=== PATIENT | female | born 1980 | race Caucasian/White ===

== ENCOUNTER 2018-03-17 16:15 | Emergency (ER) | payer OTHER, MEDICAID, SELFPAY | END 2018-03-17 18:25 | disposition home or self-care (01) | PROVIDERS: Emergency Provider Emergency Medicine; Family Provider Physician Assistant; PCP Physician Assistant; Visit Provider Emergency Medicine | DX: N83.201 Unspecified ovarian cyst, right side (principal) | CPT/HCPCS: 76830; 76856; 76857; 81003; 81015; 81025; 96372; 99283; J1885 ==

== ENCOUNTER → 2018-06-09 09:55 | Outpatient (CLI) | payer OTHER, MEDICAID, SELFPAY ==
[2018-06-09 10:26] LABS: Alanine Aminotransferase 39 IU/L (9-52); Albumin 4.1 g/dL (3.5-5.0); Albumin Globulin Ratio 1.7 (1.0-2.8); Alkaline Phosphatase 57 U/L (38-126); Aspartate Aminotransferase 26 IU/L (14-36); Bilirubin Total 0.4 mg/dL (0.2-1.3); Blood Urea Nitrogen 18 mg/dL (7-17); Carbon Dioxide 28 mmol/L (22-32); Chloride 107 mmol/L (98-107); Cholesterol 169 mg/dL (140-199); Estimated Glomerular Filt Rate > 60.0 mL/min (>60); Globulin 2.4 g/dL (1.7-4.1); Glucose 98 mg/dL (70-100); HDL Cholesterol 55 mg/dL (40-60); HEMOLYSIS < 15 (0-50); LDL Cholesterol Calculated 101 mg/dL (<100); Sodium 140 mmol/L (137-145); Total Protein 6.5 g/dL (6.3-8.2); Triglycerides 65 mg/dL (35-150)
[2018-06-09 10:58] LABS: HEMOLYSIS < 15 (0-50); Iron 82 ug/dL (37-170)
[2018-06-09 11:00] LABS: Ferritin 14.5 ng/mL (6.27-137)
[2018-06-09 11:11] LABS: Percent Iron Saturation 26 % (15-50); Total Iron Binding Capacity 318 ug/dL (265-497); Transferrin 254 mg/dL (206-381)
[2018-06-09 11:30] LABS: Thyroid Stimulating Hormone 2.26 uIU/mL (0.47-4.68)
--- NOTE | 2018-07-15 10:42 | DIET.PN ---
Assess: 38 yof referred for obesity and pre-bariatric nutrition counseling. Met for patients 12th of 12 appointments. The patient and I have been meeting since late October. She has had a few set backs related to GI complications and had to undergo surgery which led to a break in our appointments. However, she was able to maintain her weight loss since beginning our sessions together. Anabel has many things going in her life including work, trying to go back to school, some health complications which have hopefully been resolved and she is a mother. Through a hectic lifestyle she has remained motivated to lose weight and make healthful lifestyle choices. Anabel has also been involved in several online groups which discuss the pros/cons of bariatric surgery which has also been a means for support as she has embarked on this journey to better health. Anabel has indicated to me she was unsure of the surgery, specifically if she knew she could lose the weight on her own. As we continued to meet, it became more clear to her this is something she feels she needed to do. She has an understanding of what is expected of her through diet and exercise and has shown she can adjust to these recommendations even in the more stressful moments. She has provided 24 hr recalls when I have asked. While this is a tedious request, she sees the benefit in keeping track of her intake for the best outcome and has been compliant. Anabel has met her goal weight. Anthros: Ht: 64 Wt: 282 Goal wt: 282 BMI: 43.25 Nutrition DX: Obesity r/t excessive caloric intake and inadequate PA eb previous diet hx, BMI > normative standards. Intervention: 1. We discussed changes in lifestyle (going back to school, time management) as it related to eating habits. 2. Discussed challenges to staying active and ways to include these daily with her new schedule. Monitor: This was Anabel's last visit. All documents will be sent to provider. Signed: Ana Luisa Stanley MS, RD/LD, CDE
== END ==
PROVIDERS: PCP Physician Assistant; Visit Provider Physician Assistant
DX: R53.83 Other fatigue (principal); E66.01 Morbid (severe) obesity due to excess calories; Z13.220 Encounter for screening for lipoid disorders; Z13.6 Encounter for screening for cardiovascular disorders
CPT/HCPCS: 80053; 80061; 82728; 83540; 83550; 84443

== ENCOUNTER → 2018-06-16 07:58 | Outpatient (CLI) | payer OTHER, MEDICAID, SELFPAY ==
[2018-06-16 08:42] VITALS: BMI 48.9
== END ==
PROVIDERS: PCP Physician Assistant; Visit Provider Physician Assistant
DX: Z71.3 Dietary counseling and surveillance (principal); E66.01 Morbid (severe) obesity due to excess calories; Z68.42 Body mass index [BMI] 45.0-49.9, adult
CPT/HCPCS: 97803

== ENCOUNTER → 2018-06-24 09:33 | Outpatient (CLI) | payer OTHER, MEDICAID, SELFPAY ==
[2018-06-24 10:38] VITALS: BMI 48.0
== END ==
PROVIDERS: PCP Physician Assistant; Visit Provider Physician Assistant
DX: Z71.3 Dietary counseling and surveillance (principal); E66.01 Morbid (severe) obesity due to excess calories; Z68.42 Body mass index [BMI] 45.0-49.9, adult
CPT/HCPCS: 97803

== ENCOUNTER → 2018-06-28 09:20 | Outpatient (CLI) | payer OTHER, MEDICAID, SELFPAY ==
[2018-06-28 09:56] VITALS: BMI 48.5
== END ==
PROVIDERS: PCP Physician Assistant; Visit Provider Physician Assistant
DX: E66.01 Morbid (severe) obesity due to excess calories (principal); Z68.42 Body mass index [BMI] 45.0-49.9, adult
CPT/HCPCS: 97803

== ENCOUNTER → 2018-07-15 09:47 | Outpatient (CLI) | payer OTHER, MEDICAID, SELFPAY | PROVIDERS: PCP Physician Assistant; Visit Provider Physician Assistant | DX: Z71.3 Dietary counseling and surveillance (principal) | CPT/HCPCS: 97803 ==

== ENCOUNTER → 2018-08-18 14:40 | Outpatient (CLI) | payer OTHER, MEDICAID, SELFPAY | PROVIDERS: PCP Physician Assistant; Visit Provider Obstetrics & Gynecology | DX: N90.89 Other specified noninflammatory disorders of vulva and perineum (principal) | CPT/HCPCS: 36415; 86695; 86696; 87255 ==

== ENCOUNTER 2019-01-30 08:32 | Day surgery (SDC) | payer OTHER, MEDICAID, SELFPAY ==
[2019-01-27 10:53] VITALS: BMI 46.3
[2019-01-30] VITALS (9 sets, daily range): BP systolic 107–155; BP diastolic 68–99; PULSE 66–92; RESP 9–72; TEMP 36–36.7; O2SAT 11–99; BMI 46.6
[2019-01-30] MEDS: LACTATED RINGERS 1,000 ML 100 ML IV (09:15)
--- NOTE | 2019-01-30 10:14 | PM.PREOP ---
Pre-operative Note Interval Note History & Physical reviewed/Exam performed by Physician: Yes Changes to H&P: No
[2019-01-30] MEDS: CEFAZOLIN VIAL 3 GM in SODIUM CHLORIDE 0.9% 100 ML 200 ML IV (10:25)
[2019-01-30] MEDS: BUPIVACAINE 0.5% W/ EPI (PF) VIAL 10 ML INJ (11:05)
[2019-01-30] MEDS: ACETAMINOPHEN IV 1,000 MG/100 ML VIAL 400 MG IV (11:15)
[2019-01-30] MEDS: HYDROMORPHONE 2 MG INJ 0.25 MG IV (12:05)
[2019-01-30] MEDS: OXYCODONE/ACETAMINOPHEN 5/325 TABLET 1 TAB PO (12:13)
--- NOTE | 2019-01-30 12:13 | SUR.PHASEI ---
pain improved after IV rx. HOB elevated. tolerating fluids and applesauce well.
--- NOTE | 2019-01-30 12:22 | SUR.PHASEI ---
To opd, family to bedside. Report given. drowsy, stable, c/o sore throat, ice chips given.
--- NOTE | 2019-01-30 12:55 | SUR.PHASEII ---
PT TOLERATING PO FLUIDS, VISITING WITH FRIENDS AT BEDSIDE.
--- NOTE | 2019-02-04 11:08 | P.OP_ITS ---
Operative Date/Time/Diagnoses Date of procedure: 01/30/19 Time of procedure: 12:00 Pre-op diagnosis: Menorrhagia Dysmenorrhea Post-op diagnosis: same Procedure: Procedures Operation Date: 01/30/19 09:45 Actual Procedures Side Surgeon p diagnostic laparoscopy Luana Chavez MD Indications: Menorrhagia Dysmenorrhea Surgeon: Luana Chavez Greenhouse Superintendent: Taj Aguero Anesthesia Type: General Operative Notes Findings: Could not visualize the pelvis due to patient's body habitus Closure Type: primary Specimen(s): none Estimated blood loss (mL): 3 Blood products transfused: none Procedure in detail: The patient was taken to the operating room where she was placed in the dorsal supine position. After adequate general endotracheal anesthesia was achieved, she was placed in the dorsal lithotomy position, and prepped and draped in the usual sterile fashion. A time-out was performed. A bivalve speculum was placed into the vagina and the anterior lip of the cervix grasped with a single-tooth tenaculum. The cervical os was sequentially dilated until the Zumi uterine manipulator could pass easily into the endometrial cavity. Single-tooth tenaculum was removed from the anterior lip of the cervix. The bivalve speculum was removed from the vagina. Attention was then turned to the abdomen where 6 cc of 0.5% Marcaine with epinephrine were injected in the umbilical fold. A 5 mm incision was made. Using the long Veress needle an at tempt was made to insufflate the abdomen. The visit view trocar was then used to try to get into the abdominal cavity. After multiple attempts with both the varies and the trocar, intraperitoneal entry was not obtained. The patient's body habitus was beyond the capabilities of the instrumentation. A decision was made to stop the procedure and refer the patient to a center with bariatric capabilities. The infraumbilical incision was closed with 4 0 undyed Vicryl in a subcuticular fashion. The Zumi uterine manipulator was removed from the uterus. Sponge, lap, and instrument counts were correct x2. The patient tolerated the procedure well, and was taken to PACU in stable condition. Complications: none Post-operative Condition: stable Disposition: PACU Plan for aftercare: Home after recovery
== END 2019-01-30 13:25 | disposition home or self-care (01) ==
LOC: OR 08:35 → AC 08:36
PROVIDERS: PCP Physician Assistant; Visit Provider Obstetrics & Gynecology
PROC: 0UT94ZL Resection of Uterus, Supracervical, Percutaneous Endoscopic Approach (ICD-10-PCS; CPT 49320; principal; 2019-01-30 09:45)
DX: N94.6 Dysmenorrhea, unspecified (principal); N92.0 Excessive and frequent menstruation with regular cycle; Z53.09 Procedure and treatment not carried out because of other contraindication; Z87.891 Personal history of nicotine dependence
CPT/HCPCS: 49320; J0131; J0690; J1100; J1170; J2250; J2405; J2704; J3010

== ENCOUNTER 2019-05-25 16:50 | Emergency (ER) | payer OTHER, MEDICAID, SELFPAY ==
[2019-05-25 16:55] VITALS: BP 155/79; PULSE 113; RESP 20; O2SAT 99
--- NOTE | 2019-05-25 17:26 | ED.CHESTPAIN ---
HPI - Chest Pain <Evelyn Mitchell PA-C - Last Filed: 05/25/19 21:07> General Chief Complaint: Chest Pain Stated Complaint: SOMETHING GOING ON WITH HER HEART Time Seen by Provider: 05/25/19 17:26 Source: patient Mode of arrival: ambulatory Limitations: no limitations History of Present Illness HPI narrative: This 39-year-old female complains of palpitations and chest discomfort all day today. She states that she had a night sweat last night, and woke up with this today. She states that her heart rate is regular but seems to fluctuate up and down and with that she can feel lightheaded/presyncopal sensation though no episodes of passing out. She states that she does not have any wheeze or dyspnea. She has some chronic lower extremity sciatica pain and anterior leg pain, but denies any new calf pain or swelling today. She states that she has a pinching pain in her chest on the left side and in her back as well as intermittently down her left arm. She states that she can feel this in her fingers occasionally but cannot say which. She states that prior to today she has had sore neck and pains throughout the left side of her body for which she has been doing workup with her PCP including MRI. She denies any new abdominal pain or vomiting. States she has had a little bit of nausea, but drinking normal fluids and eating normally. She does tend to drink a lot of coffee, denies any new medications or substances. Denies any recent illness, cough, upper respiratory symptoms, rash. She does have a history though of panic attacks, states she usually does not take medication for these. She denies any possibility of just finished menses. She states that she had a similar, worse episode a little over year ago where she actually did pass out and was seen at another local hospital. She states that full workup was done including chest PE study which was negative. She has had some other episodes where she feels presyncopal occasionally. Related Data Home Medications Medication Instructions Recorded Confirmed [id number] 1 - 2 tab PO Q6H PRN 05/25/19 05/25/19 verapamil 120 mg PO [id number] 05/25/19 05/25/19 Allergies Allergy/AdvReac Type Severity Reaction Status Date / Time bupropion [From WELLBUTRIN] AdvReac Severe mental Verified 03/04/19 09:16 breakdown while taking it. I prefer not to take it. clindamycin [CLINDAMYCIN] AdvReac Mild gave me c Verified 01/30/19 09:16 diff Review of Systems <Evelyn Mitchell PA-C - Last Filed: 05/25/19 21:07> Review of Systems ROS Unobtainable: All systems reviewed & are unremarkable except as noted in HPI and below PFSH <Evelyn Mitchell PA-C - Last Filed: 05/25/19 21:07> Medical History Anxiety (Chronic 2012) Depression (Chronic 2012) Hypothyroid (Chronic) Impaired vision (Chronic) Migraines (Chronic) CTS (carpal tunnel syndrome) (Resolved 2012) Social History marital status: unmarried,single number of children: 1 household members: family lives independently: Yes pets and animals: No education level: vocational occupational status: employed ([employer]) leisure activities: art and reading other: writing, painting, drawing seatbelt use: always water heater temp set < 120 deg: Yes working smoke detector in home: Yes fire extinguisher in home: Yes carbon monox detector in home: Yes firearms in home: No Smoking Status: Former smoker Tobacco: How many years used: 20 second hand exposure: No alcohol intake: never substance use type: former substance user (meth and pills, and any kind of pill) and other (CBC for pain) during the past year weight has: other well-balanced diet: daily or most days daily servings fruits/ve-4 caffeine: Yes (rare/occasional soda/pop) eating out: 1-3 times/week Type(s) of exercise: walking and other frequency: 1-2 times per week duration: 30-45 minutes/day additional social history: vision deficit-states she has floaters Exam <Evelyn Mitchell PA-C - Last Filed: 05/25/19 21:07> Narrative Exam Narrative: GENERAL APPEARANCE: Patient sitting comfortably, in no distress. HEENT: PERRL, EOMI, conjunctivae pink, normal oropharynx NECK: Supple, no masses LUNGS: Clear to auscultation bilaterally. HEART: Rate and rhythm regular, normal S1 and S2, no S3 or S4. ABDOMEN: Soft, nontender, nondistended, bowel sounds present x 4 quadrants, no masses palpable EXTREMITIES: No edema, no cyanosis, no calf tenderness DERMATOLOGIC: No jaundice or exanthem NEUROLOGIC: Alert and oriented with normal speech and coordination Initial Vital Signs Initial Vital Signs: Vital Signs Pulse Rate 113 H 05/25/19 16:55 Respiratory Rate 20 05/25/19 16:55 Blood Pressure 155/79 H 05/25/19 16:55 Pulse Oximetry 99 05/25/19 16:55 <Carmen Iglesias MD - Last Filed: 05/26/19 02:54> Initial Vital Signs Initial Vital Signs: Vital Signs Pulse Rate 113 H 05/25/19 16:55 Respiratory Rate 20 05/25/19 16:55 Blood Pressure 155/79 H 05/25/19 16:55 Pulse Oximetry 99 05/25/19 16:55 Course <Evelyn Mitchell PA-C - Last Filed: 05/25/19 21:07> Additional Information: On the monitor after initial evaluation patient's heart rate has been regular, pulse range 80s to 90s, 81 when talking with her prior to discharge. In discussion with patient she had an episode about a year ago where she states that she passed out, had similar symptoms and was taken to ED. She had chest CT PE study which was negative. At the time she states further cardiac testing was discussed but not done and she has since changed PCP. She states she has had several more episodes of near-syncope where she will start to feel faint, has not passed out again. We talked about her barely elevated D-dimer, given her history year old is likely low as far finding a new PE she prefers not to get further testing for that this evening as she is feeling better. Discussed importance of return if any acutely worsening symptoms again and she is agreeable with this plan. Discussed importance of follow-up and further cardiac workup. We discussed also could be related to panic attacks as she has a history but should have further testing to rule out other issues. She is still undergoing workup for chronic left-sided pain as well. Findings and plan reviewed with attending physician Dr. Iglesias Orders Ordered: Discontinued Medications Sodium Chloride (Normal Saline 0.9%) 1,000 mls @ 1,000 mls/hr IV BOLUS ONE Stop: 05/25/19 18:49 Last Infusion: 05/25/19 19:31 Dose: 1,000 mls/hr Admin: 05/25/19 18:30 Dose: 1,000 mls/hr Vital Signs - 8 hr 05/25/19 16:55 05/25/19 18:36 Pulse Rate 113 H 98 H Respiratory Rate 20 22 Blood Pressure 155/79 H Blood Pressure [Left Arm] 150/81 H Pulse Oximetry 99 97 <Carmen Iglesias MD - Last Filed: 05/26/19 02:54> Orders Ordered: Discontinued Medications Sodium Chloride (Normal Saline 0.9%) 1,000 mls @ 1,000 mls/hr IV BOLUS ONE Stop: 05/25/19 18:49 Last Infusion: 05/25/19 19:31 Dose: 1,000 mls/hr Admin: 05/25/19 18:30 Dose: 1,000 mls/hr Vital Signs - 8 hr 05/25/19 16:55 05/25/19 18:36 Pulse Rate 113 H 98 H Respiratory Rate 20 22 Blood Pressure 155/79 H Blood Pressure [Left Arm] 150/81 H Pulse Oximetry 99 97 MDM - Chest Pain <Evelyn Mitchell PA-C - Last Filed: 05/25/19 21:07> Lab Data Attestation: I reviewed the patient's lab results. Result diagrams: 05/25/19 17:45 05/25/19 17:45 Lab Results 05/25/19 05/25/19 05/25/19 Range/Units 17:45 17:45 17:45 WBC 9.0 (4.5-11.0) X10^3/uL RBC 4.83 (4.0-5.2) X10^6/uL Hgb 13.5 (12.0-16.0) g/dL Hct 40.9 (36-46) % MCV 84.7 (80-100) fL MCH 28.0 (26-34) PG MCHC 33.0 (30-36) % RDW 14.2 (11.6-14.8) % Plt Count 289 (150-400) X10^3/uL Neut % (Auto) 68.9 (50-75) % Lymph % (Auto) 20.2 L (25-40) % [place] % (Auto) 8.7 (3-14) % Eos % (Auto) 1.5 L (2-4) % Baso % (Auto) 0.7 (0-2) % Neut # (Auto) 6200 (3723-5029) /uL Lymph # (Auto) 1800 (0234-5244) /uL [place] # (Auto) 800 (0-900) /uL Eos # (Auto) 100 (0-450) /uL Baso # (Auto) 100 (0-100) /uL D-Dimer 254 H (<230) ng/mL Sodium 140 (137-145) mmol/L Potassium 3.5 (3.4-5.1) mmol/L Chloride 103 (98-107) mmol/L Carbon Dioxide 27 (22-32) mmol/L BUN 18 H (7-17) mg/dL Creatinine 0.70 (0.52-1.04) mg/dL Estimated GFR > 60.0 (>60) mL/min BUN/Creatinine Ratio 25.7 H (6-22) Glucose 114 H (70-100) mg/dL Calcium 9.4 (8.4-10.2) mg/dL Magnesium 1.9 (1.6-2.3) mg/dL Total Bilirubin 0.3 (0.2-1.3) mg/dL AST 28 (14-36) IU/L ALT 22 (9-52) IU/L Alkaline Phosphatase 52 (38-126) U/L Total Creatine Kinase 41 (30-135) U/L CK-MB (CK-2) TNP CK-MB (CK-2) Rel Index TNP Troponin I < 0.012 (0.01-0.034) ng/mL Total Protein 7.6 (6.3-8.2) g/dL Albumin 4.6 (3.5-5.0) g/dL Globulin 3.0 (1.7-4.1) g/dL Albumin/Globulin Ratio 1.5 (1.0-2.8) Urine Dip Bedside Urine Glucose Negative Bedside Urine Bilirubin - Negative Bedside Urine Ketone - Negative Urine Specific [place] 1.010 Bedside Urine Occult Blood +/- Bedside Urine pH 6.5 Bedside Urine Protein - Negative Bedside Urine Urobilinogen - Negative Bedside Urine Nitrite - Negative Bedside Urine Leukocytes - Negative Esterase Imaging Data Chest x-ray: Radiologist's impression: Chart Viewer Diagnostics DATE TYPE STATUS AUTHOR Hx 05/25/19 17:50 Leonila Jaime Rachel E 39, F0 1980 [facility] ER, ED.LOC - Main ED Chest Pain Search Chart No Data to Display mental breakdown while taking it. I prefer not to take it. gave me c diff ONSET Today 18:36 Anabel Sorto 39 F 1980 [place] [address] XRay Report Signed Patient: Anabel Sorto EMR#: [id number] : 1980Acct:[id number] Age/Sex: 39 / FDate of Service: 05/25/19 Loc: ED Accession Number: [id number] Procedure: XR chest 1V Ordering Provider: Evelyn Mitchell P.A-C PROCEDURE: XR CHEST 1V INDICATIONS: chest pain/palpitations TECHNIQUE: One view of the chest was acquired. COMPARISON: None. FINDINGS: Surgical changes and devices: clips in the right upper quadrant. Lungs and pleura: Lungs are clear. No pleural effusions or pneumothorax. Mediastinum: Mediastinal contours appear normal. Heart size is normal. Bones and chest wall: No suspicious bony lesions. Overlying soft tissues appear unremarkable. IMPRESSION: No acute cardiopulmonary disease. Dictated by: Parul Jaime M.D. on 05/25/2019 at 18:11 Approved by: Parul Jaime M.D. on 05/25/2019 at 18:15 ECG Data Attestation: I personally reviewed and interpreted this ECG as follows: (Sinus tachycardia, rate 109, normal axis) <Carmen Iglesias MD - Last Filed: 05/26/19 02:54> Lab Data Lab Results 05/25/19 05/25/19 05/25/19 Range/Units 17:45 17:45 17:45 WBC 9.0 (4.5-11.0) X10^3/uL RBC 4.83 (4.0-5.2) X10^6/uL Hgb 13.5 (12.0-16.0) g/dL Hct 40.9 (36-46) % MCV 84.7 (80-100) fL MCH 28.0 (26-34) PG MCHC 33.0 (30-36) % RDW 14.2 (11.6-14.8) % Plt Count 289 (150-400) X10^3/uL Neut % (Auto) 68.9 (50-75) % Lymph % (Auto) 20.2 L (25-40) % [place] % (Auto) 8.7 (3-14) % Eos % (Auto) 1.5 L (2-4) % Baso % (Auto) 0.7 (0-2) % Neut # (Auto) 6200 (0846-9513) /uL Lymph # (Auto) 1800 (8748-5977) /uL [place] # (Auto) 800 (0-900) /uL Eos # (Auto) 100 (0-450) /uL Baso # (Auto) 100 (0-100) /uL D-Dimer 254 H (<230) ng/mL Sodium 140 (137-145) mmol/L Potassium 3.5 (3.4-5.1) mmol/L Chloride 103 (98-107) mmol/L Carbon Dioxide 27 (22-32) mmol/L BUN 18 H (7-17) mg/dL Creatinine 0.70 (0.52-1.04) mg/dL Estimated GFR > 60.0 (>60) mL/min BUN/Creatinine Ratio 25.7 H (6-22) Glucose 114 H (70-100) mg/dL Calcium 9.4 (8.4-10.2) mg/dL Magnesium 1.9 (1.6-2.3) mg/dL Total Bilirubin 0.3 (0.2-1.3) mg/dL AST 28 (14-36) IU/L ALT 22 (9-52) IU/L Alkaline Phosphatase 52 (38-126) U/L Total Creatine Kinase 41 (30-135) U/L CK-MB (CK-2) TNP CK-MB (CK-2) Rel Index TNP Troponin I < 0.012 (0.01-0.034) ng/mL Total Protein 7.6 (6.3-8.2) g/dL Albumin 4.6 (3.5-5.0) g/dL Globulin 3.0 (1.7-4.1) g/dL Albumin/Globulin Ratio 1.5 (1.0-2.8) Urine Dip Bedside Urine Glucose Negative Bedside Urine Bilirubin - Negative Bedside Urine Ketone - Negative Urine Specific [place] 1.010 Bedside Urine Occult Blood +/- Bedside Urine pH 6.5 Bedside Urine Protein - Negative Bedside Urine Urobilinogen - Negative Bedside Urine Nitrite - Negative Bedside Urine Leukocytes - Negative Esterase Discharge Plan Departure Patient Disposition: Home Clinical Impression: Heart palpitations Discharge Date/Time: 05/25/19 19:30 Interventions: ED Discharge Assessment Last Done: 05/25/19 19:31 Instructions: DI for Palpitations Activity Restrictions/Additional Instructions: Since you are feeling better, you can return home tonight and monitor. After talking, we have decided not to repeat your chest scan today since you had 1 last year when your symptoms were worse, however as we discussed, it is important that you follow-up with your PCP and talk about further workup for the episodes of lightheadedness that you have had along with this. The next steps may be to do an ultrasound of the heart to look at your valves (called an echocardiogram), and also a monitor can be put on for up to a month to catch any rhythm problems while your symptomatic. Please call your PCP 1st thing in the morning and schedule a follow-up, preferably for tomorrow, so you can get a referral going. In the meantime, please avoid caffeinated beverages other than a smaller amount of coffee (do not quit cold turkey since you have been drinking a lot), as those could exacerbate your symptoms. As we talked about, you should return to the ED/call 911 if you have recurrent symptoms, i.e. feeling like you will pass out/high heart rate or severe pain in the interim, or new symptoms such as shortness of breath or new swelling in your arms or legs. Prescriptions: No Action [id number]-[id number]-moys 50-325-40 mg tablet 1 - 2 tab PO Q6H PRN (Reason: Headache) RF: 0 verapamil 120 mg tablet extended release 120 mg PO [id number] RF: 0 Referrals: Dino Worthington MD [Non-Staff] -
--- NOTE | 2019-05-25 17:50 | DI.RAD.S_ITS ---
PROCEDURE: XR CHEST 1V INDICATIONS: chest pain/palpitations TECHNIQUE: One view of the chest was acquired. COMPARISON: None. FINDINGS: Surgical changes and devices: clips in the right upper quadrant. Lungs and pleura: Lungs are clear. No pleural effusions or pneumothorax. Mediastinum: Mediastinal contours appear normal. Heart size is normal. Bones and chest wall: No suspicious bony lesions. Overlying soft tissues appear unremarkable. IMPRESSION: No acute cardiopulmonary disease. Dictated by: Parul Jaime M.D. on 05/25/2019 at 18:11 Approved by: Parul Jaime M.D. on 05/25/2019 at 18:15
[2019-05-25 17:57] LABS: Add Manual Diff / Slide Review NO; Basophils Absolute Auto 100 /uL (0-100); Basophils Percent Auto 0.7 % (0-2); Eosinophils Absolute Auto 100 /uL (0-450); Eosinophils Percent Auto 1.5 % (2-4); Hematocrit 40.9 % (36-46); Hemoglobin 13.5 g/dL (12.0-16.0); Lymphocytes Absolute Auto 1800 /uL (1100-4500); Lymphocytes Percent Auto 20.2 % (25-40); Mean Corpuscular Volume 84.7 fL (80-100); Monocytes Absolute Auto 800 /uL (0-900); Monocytes Percent Auto 8.7 % (3-14); Neutrophils Absolute Auto 6200 /uL (1500-7000); Neutrophils Percent Auto 68.9 % (50-75); Platelet Count 289 X10^3/uL (150-400); Red Blood Cell Count 4.83 X10^6/uL (4.0-5.2); Red Cell Distribution Width 14.2 % (11.6-14.8)
--- NOTE | 2019-05-25 17:59 | ED_ITS ---
HPI - Chest Pain <Evelyn Mitchell PA-C - Last Filed: 05/25/19 21:07> General Chief Complaint: Chest Pain Stated Complaint: SOMETHING GOING ON WITH HER HEART Time Seen by Provider: 05/25/19 17:26 Source: patient Mode of arrival: ambulatory Limitations: no limitations History of Present Illness HPI narrative: This 39-year-old female complains of palpitations and chest discomfort all day today. She states that she had a night sweat last night, and woke up with this today. She states that her heart rate is regular but seems to fluctuate up and down and with that she can feel lightheaded/presyncopal sensation though no episodes of passing out. She states that she does not have any wheeze or dyspnea. She has some chronic lower extremity sciatica pain and anterior leg pain, but denies any new calf pain or swelling today. She states that she has a pinching pain in her chest on the left side and in her back as well as intermittently down her left arm. She states that she can feel this in her fingers occasionally but cannot say which. She states that prior to today she has had sore neck and pains throughout the left side of her body for which she has been doing workup with her PCP including MRI. She denies any new abdominal pain or vomiting. States she has had a little bit of nausea, but drinking normal fluids and eating normally. She does tend to drink a lot of coffee, denies any new medications or substances. Denies any recent illness, cough, upper respiratory symptoms, rash. She does have a history though of panic attacks, states she usually does not take medication for these. She denies any possibility of just finished menses. She states that she had a similar, worse episode a little over year ago where she actually did pass out and was seen at another local hospital. She states that full workup was done including chest PE study which was negative. She has had some other episodes where she feels presyncopal occasionally. Related Data Home Medications Medication Instructions Recorded Confirmed [id number]-ckcopoqlsfpnc-qrqh 1 - 2 tab PO Q6H PRN 05/25/19 05/25/19 verapamil 120 mg PO [id number] 05/25/19 05/25/19 Allergies Allergy/AdvReac Type Severity Reaction Status Date / Time bupropion [From WELLBUTRIN] AdvReac Severe mental Verified 03/04/19 09:16 breakdown while taking it. I prefer not to take it. clindamycin [CLINDAMYCIN] AdvReac Mild gave me c Verified 01/30/19 09:16 diff Review of Systems <Evelyn Mitchell PA-C - Last Filed: 05/25/19 21:07> Review of Systems ROS Unobtainable: All systems reviewed & are unremarkable except as noted in HPI and below PFSH <Evelyn Mitchell PA-C - Last Filed: 05/25/19 21:07> Medical History Anxiety (Chronic 2012) Depression (Chronic 2012) Hypothyroid (Chronic) Impaired vision (Chronic) Migraines (Chronic) CTS (carpal tunnel syndrome) (Resolved 2012) Social History marital status: unmarried,single number of children: 1 household members: family lives independently: Yes pets and animals: No education level: vocational occupational status: employed ([employer]) leisure activities: art and reading other: writing, painting, drawing seatbelt use: always water heater temp set < 120 deg: Yes working smoke detector in home: Yes fire extinguisher in home: Yes carbon monox detector in home: Yes firearms in home: No Smoking Status: Former smoker Tobacco: How many years used: 20 second hand exposure: No alcohol intake: never substance use type: former substance user (meth and pills, and any kind of pill) and other (CBC for pain) during the past year weight has: other well-balanced diet: daily or most days daily servings fruits/ve-4 caffeine: Yes (rare/occasional soda/pop) eating out: 1-3 times/week Type(s) of exercise: walking and other frequency: 1-2 times per week duration: 30-45 minutes/day additional social history: vision deficit-states she has floaters Exam <Evelyn Mitchell PA-C - Last Filed: 05/25/19 21:07> Narrative Exam Narrative: GENERAL APPEARANCE: Patient sitting comfortably, in no distress. HEENT: PERRL, EOMI, conjunctivae pink, normal oropharynx NECK: Supple, no masses LUNGS: Clear to auscultation bilaterally. HEART: Rate and rhythm regular, normal S1 and S2, no S3 or S4. ABDOMEN: Soft, nontender, nondistended, bowel sounds present x 4 quadrants, no masses palpable EXTREMITIES: No edema, no cyanosis, no calf tenderness DERMATOLOGIC: No jaundice or exanthem NEUROLOGIC: Alert and oriented with normal speech and coordination Initial Vital Signs Initial Vital Signs: Vital Signs Pulse Rate 113 H 05/25/19 16:55 Respiratory Rate 20 05/25/19 16:55 Blood Pressure 155/79 H 05/25/19 16:55 Pulse Oximetry 99 05/25/19 16:55 <Carmen Iglesias MD - Last Filed: 05/26/19 02:54> Initial Vital Signs Initial Vital Signs: Vital Signs Pulse Rate 113 H 05/25/19 16:55 Respiratory Rate 20 05/25/19 16:55 Blood Pressure 155/79 H 05/25/19 16:55 Pulse Oximetry 99 05/25/19 16:55 Course <Evelyn Mitchell PA-C - Last Filed: 05/25/19 21:07> Additional Information: On the monitor after initial evaluation patient's heart rate has been regular, pulse range 80s to 90s, 81 when talking with her prior to discharge. In discussion with patient she had an episode about a year ago w here she states that she passed out, had similar symptoms and was taken to ED. She had chest CT PE study which was negative. At the time she states further cardiac testing was discussed but not done and she has since changed PCP. She states she has had several more episodes of near-syncope where she will start to feel faint, has not passed out again. We talked about her barely elevated D-dimer, given her history year old is likely low as far finding a new PE she prefers not to get further testing for that this evening as she is feeling better. Discussed importance of return if any acutely worsening symptoms again and she is agreeable with this plan. Discussed importance of follow-up and further cardiac workup. We discussed also could be related to panic attacks as she has a history but should have further testing to rule out other issues. She is still undergoing workup for chronic left-sided pain as well. Findings and plan reviewed with attending physician Dr. Iglesias Orders Ordered: Discontinued Medications Sodium Chloride (Normal Saline 0.9%) 1,000 mls @ 1,000 mls/hr IV BOLUS ONE Stop: 05/25/19 18:49 Last Infusion: 05/25/19 19:31 Dose: 1,000 mls/hr Admin: 05/25/19 18:30 Dose: 1,000 mls/hr Vital Signs - 8 hr 05/25/19 16:55 05/25/19 18:36 Pulse Rate 113 H 98 H Respiratory Rate 20 22 Blood Pressure 155/79 H Blood Pressure [Left Arm] 150/81 H Pulse Oximetry 99 97 <Carmen Iglesias MD - Last Filed: 05/26/19 02:54> Orders Ordered: Discontinued Medications Sodium Chloride (Normal Saline 0.9%) 1,000 mls @ 1,000 mls/hr IV BOLUS ONE Stop: 05/25/19 18:49 Last Infusion: 05/25/19 19:31 Dose: 1,000 mls/hr Admin: 05/25/19 18:30 Dose: 1,000 mls/hr Vital Signs - 8 hr 05/25/19 16:55 05/25/19 18:36 Pulse Rate 113 H 98 H Respiratory Rate 20 22 Blood Pressure 155/79 H Blood Pressure [Left Arm] 150/81 H Pulse Oximetry 99 97 MDM - Chest Pain <Evelyn Mitchell PA-C - Last Filed: 05/25/19 21:07> Lab Data Attestation: I reviewed the patient's lab results. Result diagrams: 05/25/19 17:45 05/25/19 17:45 Lab Results 05/25/19 05/25/19 05/25/19 Range/Units 17:45 17:45 17:45 WBC 9.0 (4.5-11.0) X10^3/uL RBC 4.83 (4.0-5.2) X10^6/uL Hgb 13.5 (12.0-16.0) g/dL Hct 40.9 (36-46) % MCV 84.7 (80-100) fL MCH 28.0 (26-34) PG MCHC 33.0 (30-36) % RDW 14.2 (11.6-14.8) % Plt Count 289 (150-400) X10^3/uL Neut % (Auto) 68.9 (50-75) % Lymph % (Auto) 20.2 L (25-40) % [place] % (Auto) 8.7 (3-14) % Eos % (Auto) 1.5 L (2-4) % Baso % (Auto) 0.7 (0-2) % Neut # (Auto) 6200 (1232-0133) /uL Lymph # (Auto) 1800 (1745-7181) /uL [place] # (Auto) 800 (0-900) /uL Eos # (Auto) 100 (0-450) /uL Baso # (Auto) 100 (0-100) /uL D-Dimer 254 H (<230) ng/mL Sodium 140 (137-145) mmol/L Potassium 3.5 (3.4-5.1) mmol/L Chloride 103 (98-107) mmol/L Carbon Dioxide 27 (22-32) mmol/L BUN 18 H (7-17) mg/dL Creatinine 0.70 (0.52-1.04) mg/dL Estimated GFR > 60.0 (>60) mL/min BUN/Creatinine Ratio 25.7 H (6-22) Glucose 114 H (70-100) mg/dL Calcium 9.4 (8.4-10.2) mg/dL Magnesium 1.9 (1.6-2.3) mg/dL Total Bilirubin 0.3 (0.2-1.3) mg/dL AST 28 (14-36) IU/L ALT 22 (9-52) IU/L Alkaline Phosphatase 52 (38-126) U/L Total Creatine Kinase 41 (30-135) U/L CK-MB (CK-2) TNP CK-MB (CK-2) Rel Index TNP Troponin I < 0.012 (0.01-0.034) ng/mL Total Protein 7.6 (6.3-8.2) g/dL Albumin 4.6 (3.5-5.0) g/dL Globulin 3.0 (1.7-4.1) g/dL Albumin/Globulin Ratio 1.5 (1.0-2.8) Urine Dip Bedside Urine Glucose Negative Bedside Urine Bilirubin - Negative Bedside Urine Ketone - Negative Urine Specific [place] 1.010 Bedside Urine Occult Blood +/- Bedside Urine pH 6.5 Bedside Urine Protein - Negative Bedside Urine Urobilinogen - Negative Bedside Urine Nitrite - Negative Bedside Urine Leukocytes - Negative Esterase Imaging Data Chest x-ray: Radiologist's impression: Chart Viewer Diagnostics DATE TYPE STATUS AUTHOR Hx 05/25/19 17:50 Leonila Jaime Rachel E 39, F0 1980 [facility] ER, ED.LOC - Main ED Chest Pain Search Chart No Data to Display mental breakdown while taking it. I prefer not to take it. gave me c diff ONSET Today 18:36 Anabel Sorto 39 F 1980 [place] [address] XRay Report Signed Patient: Anabel Sorto EMR#: [id number] : 1980Acct:[id number] Age/Sex: 39 / FDate of Service: 05/25/19 Loc: ED Accession Number: [id number] Procedure: XR chest 1V Ordering Provider: Evelyn Mitchell P.A-C PROCEDURE: XR CHEST 1V INDICATIONS: chest pain/palpitations TECHNIQUE: One view of the chest was acquired. COMPARISON: None. FINDINGS: Surgical changes and devices: clips in the right upper quadrant. Lungs and pleura: Lungs are clear. No pleural effusions or pneumothorax. Mediastinum: Mediastinal contours appear normal. Heart size is normal. Bones and chest wall: No suspicious bony lesions. Overlying soft tissues appear unremarkable. IMPRESSION: No acute cardiopulmonary disease. Dictated by: Parul Jaime M.D. on 05/25/2019 at 18:11 Approved by: Parul Jaime M.D. on 05/25/2019 at 18:15 ECG Data Attestation: I personally reviewed and interpreted this ECG as follows: (Sinus tachycardia, rate 109, normal axis) <Carmen Iglesias MD - Last Filed: 05/26/19 02:54> Lab Data Lab Results 05/25/19 05/25/19 05/25/19 Range/Units 17:45 17:45 17:45 WBC 9.0 (4.5-11.0) X10^3/uL RBC 4.83 (4.0-5.2) X10^6/uL Hgb 13.5 (12.0-16.0) g/dL Hct 40.9 (36-46) % MCV 84.7 (80-100) fL MCH 28.0 (26-34) PG MCHC 33.0 (30-36) % RDW 14.2 (11.6-14.8) % Plt Count 289 (150-400) X10^3/uL Neut % (Auto) 68.9 (50-75) % Lymph % (Auto) 20.2 L (25-40) % [place] % (Auto) 8.7 (3-14) % Eos % (Auto) 1.5 L (2-4) % Baso % (Auto) 0.7 (0-2) % Neut # (Auto) 6200 (0970-4004) /uL Lymph # (Auto) 1800 (7538-3467) /uL [place] # (Auto) 800 (0-900) /uL Eos # (Auto) 100 (0-450) /uL Baso # (Auto) 100 (0-100) /uL D-Dimer 254 H (<230) ng/mL Sodium 140 (137-145) mmol/L Potassium 3.5 (3.4-5.1) mmol/L Chloride 103 (98-107) mmol/L Carbon Dioxide 27 (22-32) mmol/L BUN 18 H (7-17) mg/dL Creatinine 0.70 (0.52-1.04) mg/dL Estimated GFR > 60.0 (>60) mL/min BUN/Creatinine Ratio 25.7 H (6-22) Glucose 114 H (70-100) mg/dL Calcium 9.4 (8.4-10.2) mg/dL Magnesium 1.9 (1.6-2.3) mg/dL Total Bilirubin 0.3 (0.2-1.3) mg/dL AST 28 (14-36) IU/L ALT 22 (9-52) IU/L Alkaline Phosphatase 52 (38-126) U/L Total Creatine Kinase 41 (30-135) U/L CK-MB (CK-2) TNP CK-MB (CK-2) Rel Index TNP Troponin I < 0.012 (0.01-0.034) ng/mL Total Protein 7.6 (6.3-8.2) g/dL Albumin 4.6 (3.5-5.0) g/dL Globulin 3.0 (1.7-4.1) g/dL Albumin/Globulin Ratio 1.5 (1.0-2.8) Urine Dip Bedside Urine Glucose Negative Bedside Urine Bilirubin - Negative Bedside Urine Ketone - Negative Urine Specific [place] 1.010 Bedside Urine Occult Blood +/- Bedside Urine pH 6.5 Bedside Urine Protein - Negative Bedside Urine Urobilinogen - Negative Bedside Urine Nitrite - Negative Bedside Urine Leukocytes - Negative Esterase Discharge Plan Departure Patient Disposition: Home Clinical Impression: Heart palpitations Discharge Date/Time: 05/25/19 19:30 Interventions: ED Discharge Assessment Last Done: 05/25/19 19:31 Instructions: DI for Palpitations Activity Restrictions/Additional Instructions: Since you are feeling better, you can return home tonight and monitor. After talking, we have decided not to repeat your chest scan today since you had 1 last year when your symptoms were worse, however as we discussed, it is important that you follow-up with your PCP and talk about further workup for the episodes of lightheadedness that you have had along with this. The next steps may be to do an ultrasound of the heart to look at your valves (called an echocardiogram), and also a monitor can be put on for up to a month to catch any rhythm problems while your symptomatic. Please call your PCP 1st thing in the morning and schedule a follow-up, preferably for tomorrow, so you can get a referral going. In the meantime, please avoid caffeinated beverages other than a smaller amount of coffee (do not quit cold turkey since you have been drinking a lot), as those could exacerbate your symptoms. As we talked about, you should return to the ED/call 911 if you have recurrent symptoms, i.e. feeling like you will pass out/high heart rate or severe pain in the interim, or new symptoms such as shortness of breath or new swelling in your arms or legs. Prescriptions: No Action [id number]-hzhrrjmpgfdnx-etdz 50-325-40 mg tablet 1 - 2 tab PO Q6H PRN (Reason: Headache) RF: 0 verapamil 120 mg tablet extended release 120 mg PO [id number] RF: 0 Referrals: Dino Worthington MD [Non-Staff] -
[2019-05-25 18:01] LABS: D Dimer 254 ng/mL (<230)
[2019-05-25 18:03] LABS: Alanine Aminotransferase 22 IU/L (9-52); Albumin 4.6 g/dL (3.5-5.0); Albumin Globulin Ratio 1.5 (1.0-2.8); Alkaline Phosphatase 52 U/L (38-126); Aspartate Aminotransferase 28 IU/L (14-36); BUN Creatinine Ratio 25.7 (6-22); Bilirubin Total 0.3 mg/dL (0.2-1.3); Blood Urea Nitrogen 18 mg/dL (7-17); Calcium 9.4 mg/dL (8.4-10.2); Carbon Dioxide 27 mmol/L (22-32); Chloride 103 mmol/L (98-107); Creatine Kinase 41 U/L (30-135); Estimated Glomerular Filt Rate > 60.0 mL/min (>60); Glucose 114 mg/dL (70-100); HEMOLYSIS < 15 (0-50); Magnesium 1.9 mg/dL (1.6-2.3); Potassium 3.5 mmol/L (3.4-5.1); Sodium 140 mmol/L (137-145); Total Protein 7.6 g/dL (6.3-8.2)
[2019-05-25 18:15] LABS: Troponin I < 0.012 ng/mL (0.01-0.034)
[2019-05-25] MEDS: SODIUM CHLORIDE 0.9% 1,000 ML 1000 ML IV (18:30)
[2019-05-25 18:36] VITALS: BP 150/81; PULSE 98; RESP 22; O2SAT 97
== END 2019-05-25 19:30 | disposition home or self-care (01) ==
PROVIDERS: Emergency Provider Internal Medicine; Family Provider Physician Assistant; PCP Physician Assistant
DX: R00.2 Palpitations (principal); R00.0 Tachycardia, unspecified
CPT/HCPCS: 36591; 71045; 80053; 81003; 82550; 83735; 84484; 85025; 85379; 93005; 93010; 96360; 99283; 99285

== ENCOUNTER 2020-01-25 17:55 | Emergency (ER) | payer OTHER, MEDICAID, SELFPAY ==
[2020-01-25 17:56] VITALS: BP 151/87; PULSE 84; RESP 16; TEMP 37.3; O2SAT 100; BMI 45.1
--- NOTE | 2020-01-25 19:29 | ED.BACK ---
HPI - Back Pain/Injury <ELENITA Chavez - Last Filed: 01/25/20 19:48> General Chief Complaint: Back Pain/Injury Stated Complaint: probable pinched nerve in back and left sided shoo Time Seen by Provider: 01/25/20 18:36 Source: patient History of Present Illness HPI Narrative: 39-year-old female with history of a panic disorder and hypochondriaism, presents emergency department complaining of a burning and sharp stabbing pain to her left mid back that radiates down to her hip and leg. She reports intermittent tingling down her left leg. She states this pain has been ongoing for a year but suddenly worsened today when she turn to the left and felt a spasm. The pain is intermittently worse with twisting and bending. She states it is also worse when she lifts her left leg up. Patient states when she twisted she felt an intense pain and ?peed a little which she states has not happened in the past. Patient denies any abdominal pain, dysuria, fevers, chills, trauma to the area, history of back surgeries, nausea, vomiting, diarrhea, loss of bowel or bladder control in addition to stated above, difficulty moving limbs, or any other concerns. Patient has been going to the chiropractor but denies any recent spinal manipulations. Denies any spinal injections. Related Data Home Medications Medication Instructions Recorded Confirmed eskhxeeaxm-sbkhoxhwrsvcm-trry 1 - 2 tab PO Q6H PRN 05/25/19 05/25/19 verapamil 120 mg PO [id number] 05/25/19 05/25/19 Previous Rx's Medication Instructions Recorded cyclobenzaprine 10 mg PO TID #20 tab 01/25/20 Allergies Allergy/AdvReac Type Severity Reaction Status Date / Time bupropion [From WELLBUTRIN] AdvReac Severe mental Verified 01/30/19 09:16 breakdown while taking it. I prefer not to take it. clindamycin [CLINDAMYCIN] AdvReac Mild gave me c Verified 01/30/19 09:16 diff Review of Systems <ELENITA Chavez - Last Filed: 01/25/20 19:48> Review of Systems Narrative: REVIEW OF SYSTEMS: GENERAL: Denies fever or chills. HENT: No head trauma. EYES: No double vision or vision loss. CARDIOVASCULAR: No chest pain or syncope. RESPIRATORY: No shortness of breath or cough. GASTROINTESTINAL: No nausea, vomiting, diarrhea, or constipation. GENITOURINARY: No flank pain or dysuria. MUSCULOSKELETAL: Complains of back pain, see HPI. INTEGUMENTARY: No rash, lesions, or pruritus. NEURO: Reports left leg tingling and burning, see HPI. PSYCH: Patient reports anxiety, see HPI. Patient History <ELENITA Chavez - Last Filed: 01/25/20 19:48> Medical History Anxiety (Chronic 2012) CTS (carpal tunnel syndrome) (Resolved 2012) Depression (Chronic 2012) Hypothyroid (Chronic) Impaired vision (Chronic) Migraines (Chronic) Surgical History Anesthesia (Resolved) H/O unilateral salpingectomy (Resolved) History of carpal tunnel repair (Resolved 10/2013) Status post cholecystectomy (Resolved 1995) Family History Brother Age: 43 Heart disease Brother Age: 48 Heart disease Father Age: 74 Mental health problem Mother Age: 72 Diabetes mellitus Hypertension Social History marital status: unmarried,single number of children: 1 household members: family lives independently: Yes pets and animals: No education level: vocational occupational status: employed ([employer]) leisure activities: art and reading other: writing, painting, drawing seatbelt use: always water heater temp set < 120 deg: Yes working smoke detector in home: Yes fire extinguisher in home: Yes carbon monox detector in home: Yes firearms in home: No Smoking Status: Former smoker Tobacco: How many years used: 20 second hand exposure: No alcohol intake: never substance use type: former substance user (meth and pills, and any kind of pill) and other (CBC for pain) during the past year weight has: other well-balanced diet: daily or most days daily servings fruits/ve-4 caffeine: Yes (rare/occasional soda/pop) eating out: 1-3 times/week Type(s) of exercise: walking and other frequency: 1-2 times per week duration: 30-45 minutes/day additional social history: vision deficit-states she has floaters Smoking Status: Former smoker Substance Use Type: does not use Exam <ELENITA Chavez - Last Filed: 01/25/20 19:48> Initial Vital Signs Initial Vital Signs: Vital Signs Temperature 99.1 F 01/25/20 17:56 Pulse Rate 84 01/25/20 17:56 Respiratory Rate 16 01/25/20 17:56 Blood Pressure 151/87 H 01/25/20 17:56 Pulse Oximetry 100 01/25/20 17:56 PHYSICAL EXAMINATION: GENERAL: Well groomed, alert, and cooperative. Answers questions promptly and appropriately. Vital signs noted. HENT: Normocephalic, atraumatic. EYES: Symmetrical, sclera white, no periorbital swelling. CARDIOVASCULAR: S1 and S2 sounds normal. Regular rate and rhythm, no murmurs, clicks, or bruits. . RESPIRATORY: Normal respiratory rate, trachea midline, airway patent. No stridor, nasal flaring or accessory muscle use. Lungs are clear in all bhatia. MUSCULOSKELETAL: Equal explosives detonator strength, forearm strength, deltoid, and lower extremity strength bilaterally. Tenderness to left-sided intercostal muscles, small spasm felt to left mid-paraspinal vertebral muscles. Pain reproducible with palpation and twisting the left. Positive left straight leg test. Normal gait and coordination. Equal tone and mass bilaterally. No spinal tenderness or deformities. EXTREMITIES: CMS intact. Radial pulses 2+ and equal bilaterally. SKIN: Warm, dry, soft, appropriate color for ethnicity. No lesions, rashes, or wounds. NEURO: Alert and Oriented X 3. No sensory deficits. Intact light touch sensation to upper and lower extremities. PSYCH: Appropriate affect and mood. <Christine Bundy MD - Last Filed: 01/26/20 03:26> Initial Vital Signs Initial Vital Signs: Vital Signs Temperature 99.1 F 01/25/20 17:56 Pulse Rate 84 01/25/20 17:56 Respiratory Rate 16 01/25/20 17:56 Blood Pressure 151/87 H 01/25/20 17:56 Pulse Oximetry 100 01/25/20 17:56 Course <ELENITA Chavez - Last Filed: 01/25/20 19:48> Orders Ordered: ED Orders 01/25/20 19:41 Urine Microscopic Stat Vital Signs Vital signs: Vital Signs - 8 hr 01/25/20 19:39 Pulse Rate 88 Respiratory Rate 18 Pulse Oximetry 98 <Christine Bundy MD - Last Filed: 01/26/20 03:26> Orders Ordered: ED Orders 01/25/20 19:41 Urine Microscopic Stat Vital Signs Vital signs: Vital Signs - 8 hr 01/25/20 19:39 Pulse Rate 88 Respiratory Rate 18 Pulse Oximetry 98 MDM - Back Pain/Injury <ELENITA Chavez - Last Filed: 01/25/20 19:48> Medical Records Attestation: I reviewed the patient's medical records. Lab Data Attestation: I reviewed the patient's lab results. Labs: Lab Results 01/25/20 Range/Units 19:41 Urine RBC None seen (0-5/HPF) Urine WBC None seen (0-5/HPF) Ur Squamous Epith Cells 0-1 /hpf (0-5/HPF) Urine Bacteria None seen (None) Ur Culture Indicated? Cult not indicated Point of Care Testing Test Results Negative Urine Dip Bedside Urine Glucose Negative Bedside Urine Bilirubin - Negative Bedside Urine Ketone - Negative Urine Specific [place] 1.015 Bedside Urine Occult Blood - Negative Bedside Urine pH 6.0 Bedside Urine Protein - Negative Bedside Urine Urobilinogen 1+ 2mg Bedside Urine Nitrite - Negative Bedside Urine Leukocytes - Negative Esterase MDM Narrative Medical decision making narrative: History and examination consistent with sciatica and muscle spasms due to palpable spasms, positive straight leg test, and description of pain. Less likely cauda equina due to lack of limb weakness, no significant loss of bowel or bladder control. Less likely urinary tract infection POC urine dip is negative for blood, leukocytes, and nitrates. Less likely infection due to lack of reports of any injections. Patient was given muscle relaxers. We discussed possible course of steroids, declined at this time due to history of anxiety and panic. Patient was encouraged follow-up with primary care provider to discuss further testing and treatment. She was given strict ED return precautions for new or worsening symptoms. Patient agreed to plan of care verbalized understanding. <Christine Bundy MD - Last Filed: 01/26/20 03:26> Lab Data Labs: Lab Results 01/25/20 Range/Units 19:41 Urine RBC None seen (0-5/HPF) Urine WBC None seen (0-5/HPF) Ur Squamous Epith Cells 0-1 /hpf (0-5/HPF) Urine Bacteria None seen (None) Ur Culture Indicated? Cult not indicated Point of Care Testing Test Results Negative Urine Dip Bedside Urine Glucose Negative Bedside Urine Bilirubin - Negative Bedside Urine Ketone - Negative Urine Specific [place] 1.015 Bedside Urine Occult Blood - Negative Bedside Urine pH 6.0 Bedside Urine Protein - Negative Bedside Urine Urobilinogen 1+ 2mg Bedside Urine Nitrite - Negative Bedside Urine Leukocytes - Negative Esterase Discharge Plan Departure Patient Disposition: Home Clinical Impression: Back spasm Sciatica Qualifiers: Laterality: left Qualified Code(s): M54.32 - Sciatica, left side Discharge Date/Time: 01/25/20 19:40 Instructions: DI for Sciatica, DI for Back Spasm Activity Restrictions/Additional Instructions: Thank you for entrusting me with your care today. As discussed, your symptoms are most likely caused by back spasms and sciatica. I have prescribed you a muscle relaxer. This medication will make you drowsy, do not drive while taking this. I have sent this prescription to [facility]. I recommend following up with your primary care provider in 1-2 weeks for further evaluation and discussion of other interventions for your pain such as physical therapy. Return emergency department for any new or worsening symptoms such as high fevers, uncontrollable vomiting, severe abdominal pain, complete loss of bowel or bladder control, or any other concerns. Prescriptions: New cyclobenzaprine 10 mg tablet 10 mg PO TID Qty: 20 RF: 0 No Action zjjivhvmio-hpofaaxukldar-jueu 50-325-40 mg tablet 1 - 2 tab PO Q6H PRN (Reason: Headache) RF: 0 verapamil 120 mg tablet extended release 120 mg PO [id number] RF: 0 Referrals: Steffanie Huerta PA-C [Primary Care Provider] -
[2020-01-25 19:39] VITALS: PULSE 88; RESP 18; O2SAT 98
[2020-01-25 19:43] LABS: Bacteria Urine None Seen; RBC Urine None Seen (0-5/HPF); WBC Urine None Seen (0-5/HPF)
[2020-01-25 19:57] LABS: Culture Indicated Urine Cult Not Indicated; Squamous Epithelial Cell Urine 0-1 /HPF (0-5/HPF)
== END 2020-01-25 19:40 | disposition home or self-care (01) ==
PROVIDERS: Emergency Medicine; Emergency Provider Nurse Practitioner; Family Provider Physician Assistant; PCP Physician Assistant
DX: M62.830 Muscle spasm of back (principal); M54.32 Sciatica, left side
CPT/HCPCS: 81003; 81015; 81025; 99282

== ENCOUNTER 2021-03-09 00:53 | Emergency (ER) | payer OTHER, MEDICAID, SELFPAY ==
[2021-03-09 01:06] VITALS: BP 155/81; PULSE 94; RESP 20; TEMP 36.1; O2SAT 92; BMI 49.9
--- NOTE | 2021-03-09 01:18 | ED_ITS ---
HPI - Extremity Problem General Chief complaint: Extremity Problem,Nontraumatic Stated complaint: left leg swollen Time Seen by Provider: 03/09/21 01:01 Source: patient Mode of arrival: Ambulatory Limitations: no limitations History of Present Illness HPI Narrative: This is a 41-year-old female who comes to the emergency department with complaint of left leg swelling and feeling like there is a tight band around the calf and down her leg. Patient states she has some pain with movement and ambulation. She denies any recent trauma or injuries. She denies any warmth or erythema. Patient states she has had cramping. She has had cramping in the past in that lower extremity but has become more frequent and persistent. Patient denies any fevers or chills. She denies any current chest pain or shortness of breath. No nausea or vomiting. She denies any current GI or urinary symptoms. Patient does note she has had several small boils 1 in her right axilla, left chest and on her lower extremity. The boil in her right axilla has been draining. Patient states that she does have a Mirena IUD. She has also had some back issues and states she has a pinched nerve or sciatica. She states that sometimes it does radiate down her left leg but that this episode has been localized from the calf down. Related Data Home Medications Medication Instructions Recorded Confirmed yzzqqrklue-mlqgyvxkcirze-vlan 1 - 2 tab PO Q6H PRN 05/25/19 05/25/19 verapamil 120 mg PO [id number] 05/25/19 05/25/19 Previous Rx's Medication Instructions Recorded cyclobenzaprine 10 mg PO TID #20 tab 01/25/20 naproxen 500 mg PO BID PRN #20 tab 03/09/21 sulfamethoxazole-trimethoprim 1 tab PO Q12H #14 tab 03/09/21 [Bactrim DS] Allergies Allergy/AdvReac Type Severity Reaction Status Date / Time bupropion [From WELLBUTRIN] AdvReac Severe mental Verified 01/30/19 09:16 breakdown while taking it. I prefer not to take it. clindamycin [CLINDAMYCIN] AdvReac Mild gave me c Verified 01/30/19 09:16 diff Review of Systems Review of Systems ROS Unobtainable: All systems reviewed & are unremarkable except as noted in HPI and below Patient History Medical History (Updated 03/09/21 @ 02:36 by Anabel Colbert DO) Anxiety (2013) CTS (carpal tunnel syndrome) (2013) Depression (2013) Hypothyroid Impaired vision Migraines Surgical History Anesthesia H/O unilateral salpingectomy History of carpal tunnel repair (10/2013) Status post cholecystectomy (1995) Family History Brother Age: 44 Heart disease Brother Age: 49 Heart disease Father Age: 75 Mental health problem Mother Age: 73 Diabetes mellitus Hypertension Social History marital status: unmarried,single number of children: 1 household members: family lives independently: Yes pets and animals: No education level: vocational occupational status: employed ([employer]) leisure activities: art and reading other: writing, painting, drawing seatbelt use: always water heater temp set < 120 deg: Yes working smoke detector in home: Yes fire extinguisher in home: Yes carbon monox detector in home: Yes firearms in home: No Smoking Status: Former smoker Tobacco: How many years used: 20 second hand exposure: No alcohol intake: never substance use type: former substance user (meth and pills, and any kind of pill) and other (CBC for pain) during the past year weight has: other well-balanced diet: daily or most days daily servings fruits/ve-4 caffeine: Yes (rare/occasional soda/pop) eating out: 1-3 times/week Type(s) of exercise: walking and other frequency: 1-2 times per week duration: 30-45 minutes/day additional social history: vision deficit-states she has floaters Smoking Status: Former smoker tobacco type: vaping Substance Use Type: does not use Exam Narrative Exam Narrative: GENERAL: Alert and oriented x three, well-appearing female in mild distress. HEENT: Head normocephalic, atraumatic, EOMI, pupils reactive, face symmetric, moist mucous membranes NECK: Supple, full range of motion CARDIOVASCULAR: Regular rate and rhythm without murmurs, rubs or gallops. RESPIRATORY: Breath sounds equal bilaterally, no wheezes rales or rhonchi. ABDOMEN: Soft, nontender. Normoactive bowel sounds all 4 quadrants. No guarding or rebound, rigidity, no mass : No CVA tenderness EXTREMITIES: Normal range of motion, no clubbing or edema. No erythema, warmth for swelling appreciated. Patient is neurovascularly intact with cap refill less than 2 seconds. Normal range of motion. No bony tenderness with palpation of the left lower extremity. NEUROLOGICAL: Cranial nerves II through XII grossly intact. Moving all extremities SKIN: Warm, dry, no petechiae, no rashes noted. Patient has a small erythematous fluctuant 1 cm abscess that is draining from the right axilla. She also has an arrhythmia edematous circular lesion on the left anterior chest wall. Initial Vital Signs Initial Vital Signs: Vital Signs Temperature 96.9 F L 03/09/21 01:06 Pulse Rate 94 H 03/09/21 01:06 Respiratory Rate 20 03/09/21 01:06 Blood Pressure 155/81 H 03/09/21 01:06 Pulse Oximetry 92 03/09/21 01:06 Course Orders Ordered: ED Orders 03/09/21 01:38 US periph venous low extrem lt Stat Reevaluation(s) Reevaluation #1: Reviewed patients US findings. Patient does request pres cription for naproxen higher dosage and also provided a prescription for multiple lesions on skin including axilla and left chest wall. Time: 02:51 Vital Signs Vital signs: Vital Signs - 8 hr 03/09/21 01:06 03/09/21 02:59 Temperature 96.9 F L 96.5 F L Pulse Rate 94 H 76 Respiratory Rate 20 16 Blood Pressure 155/81 H 118/55 L Pulse Oximetry 92 96 MDM - Extremity (Nontraumatic) Imaging Data US - DVT: My Impression: Prelim is negative Radiologist's Impression: Unremarkable left lower extremity venous study. No DVT identified. [facility] Narrative Medical decision making narrative: This is a 41-year-old female with complaint of left leg swelling, cramping that is somewhat chronic in nature but acutely worsened. Patient does have a history of back pain with sciatica and this is a potential cause. She also notes that she has a Mirena and is increased risk for DVT. Ultrasound is negative. Patient has a one-sided lower extremity cramping stool was suspicion for significant anemia or electrolyte abnormalities would be lower particularly on patient exam. She also noted she has multiple boils on her axilla, left chest in lower extremity. There is 1 that is actively draining with fluctuance and the rest do not have any fluctuance on exam. Patient was given prescription for Bactrim. She also requests a prescription for naproxen for the cramping which she has found helpful the past. Discharge Plan Departure Patient Disposition: Home Clinical Impression: Cramps of left lower extremity, Abscess of axilla, right Instructions: DI for Leg Pain Activity Restrictions/Additional Instructions: Follow-up with your physician for recheck if your symptoms are not improving. Your ultrasound today does not show a DVT or blood clot. Take antibiotics until completely gone. You may take Naproxen every 12 hours as needed. Prescription to [facility] [place]. Continue with warm compresses to the affected areas 4 times daily Please return for fevers, new or worsening pain, new numbness, loss of sensation or weakness, fevers greater 100.4 F, new chest pain or shortness of breath, persistent vomiting, signs of worsening infection or spreading redness, swelling or other new or concerning symptoms. Prescriptions: New sulfamethoxazole-trimethoprim [Bactrim DS] 800-160 mg tablet 1 tab PO Q12H Qty: 14 RF: 0 naproxen 500 mg tablet 500 mg PO BID PRN (Reason: pain) Qty: 20 RF: 0 No Action cnsmfowira-fjbyrztcnjqlw-gcuo 50-325-40 mg tablet 1 - 2 tab PO Q6H PRN (Reason: Headache) RF: 0 verapamil 120 mg tablet extended release 120 mg PO [id number] RF: 0 cyclobenzaprine 10 mg tablet 10 mg PO TID Qty: 20 RF: 0 Referrals: Steffanie Huerta PA-C [Primary Care Provider] -
--- NOTE | 2021-03-09 01:38 | DI.US.S_ITS ---
PROCEDURE: US PERIPH VENOUS LOW EXTREM LT INDICATIONS: CRAMPING. EDEMA TECHNIQUE: Real-time imaging, as well as color and pulse Doppler interrogation, were performed of the lower extremity deep veins from the inguinal ligament to the popliteal fossa. COMPARISON: None. FINDINGS: The common femoral, femoral and popliteal veins are normally compressible, and free of intraluminal thrombus. Color and pulse Doppler demonstrate normal phasic intraluminal flow. There is normal augmentation response to distal compression maneuver. IMPRESSION: Negative for deep venous thrombosis. Note: No significant discrepancy from the preliminary report. Dictated by: Stefano Olivares M.D. on 03/09/2021 at 8:11 Approved by: Stefano Olivares M.D. on 03/09/2021 at 8:17
[2021-03-09 02:59] VITALS: BP 118/55; PULSE 76; RESP 16; TEMP 35.8; O2SAT 96
== END 2021-03-09 03:00 | disposition home or self-care (01) ==
PROVIDERS: Emergency Provider Emergency Medicine; Family Provider Physician Assistant; PCP Physician Assistant
DX: R25.2 Cramp and spasm (principal); L02.411 Cutaneous abscess of right axilla
CPT/HCPCS: 93971; 99281; 99283

== ENCOUNTER 2021-11-29 16:20 | Emergency (ER) | payer OTHER, MEDICAID, SELFPAY ==
[2021-11-29 16:31] VITALS: BP 136/81; PULSE 83; RESP 18; TEMP 37.1; O2SAT 99; BMI 45.1
--- NOTE | 2021-11-29 16:38 | DI.RAD.S_ITS ---
PROCEDURE: XR CHEST 1V INDICATIONS: chest pain TECHNIQUE: One view of the chest was acquired. COMPARISON: [facility], CR, XR CHEST 1V, 05/25/2019, 17:53. FINDINGS: Surgical changes and devices: Cholecystectomy clips are seen. Lungs and pleura: Minimal generalized interstitial prominence can be seen on both sides. No pleural effusions or pneumothorax. Low lung volumes are noted. This causes a crowded appearance to the lung markings and limits evaluation. Mediastinum: Mediastinal contours appear normal. Heart size is normal. Bones and chest wall: No suspicious bony lesions. Mild dextroconvex scoliotic curvature is seen. Age-appropriate bony degenerative changes are seen. Overlying soft tissues appear unremarkable. IMPRESSION: Minimal generalized interstitial prominence can be seen on both sides. Differential diagnosis includes artifact from the incomplete inspiratory result, pulmonary edema, and potentially atypical infiltrate (including COVID pneumonia). If clinically appropriate, a short-term followup chest series (with PA and lateral views) performed in deep inspiration is suggested for further evaluation. Postoperative and degenerative changes are seen. Dictated by: Stefano Olivares M.D. on 11/29/2021 at 16:22 Approved by: Stefano Olivares M.D. on 11/29/2021 at 16:23
[2021-11-29 17:00] LABS: Add Manual Diff / Slide Review NO; Basophils Absolute Auto 100 /uL (0-100); Basophils Percent Auto 0.8 % (0-2); Eosinophils Absolute Auto 200 /uL (0-450); Eosinophils Percent Auto 2.9 % (2-4); Hematocrit 43.4 % (36-46); Hemoglobin 14.3 g/dL (12.0-16.0); Lymphocytes Absolute Auto 1500 /uL (1100-4500); Lymphocytes Percent Auto 22.1 % (25-40); Mean Corpuscular Hemoglobin 27.9 PG (26-34); Mean Corpuscular Volume 84.7 fL (80-100); Monocytes Absolute Auto 600 /uL (0-900); Monocytes Percent Auto 9.5 % (3-14); Neutrophils Absolute Auto 4400 /uL (1500-7000); Neutrophils Percent Auto 64.7 % (50-75); Platelet Count 316 X10^3/uL (150-400); Red Blood Cell Count 5.12 X10^6/uL (4.0-5.2); Red Cell Distribution Width 13.7 % (11.6-14.8); White Blood Cell Count 6.7 X10^3/uL (4.5-11.0)
[2021-11-29 17:07] LABS: Alanine Aminotransferase 28 IU/L (<35); Albumin 4.4 g/dL (3.5-5.0); Albumin Globulin Ratio 1.5 (1.0-2.8); Alkaline Phosphatase 58 U/L (38-126); Aspartate Aminotransferase 28 IU/L (14-36); BUN Creatinine Ratio 17.6 (6-22); Bilirubin Total 0.3 mg/dL (0.2-1.3); Blood Urea Nitrogen 13 mg/dL (7-17); Calcium 9.4 mg/dL (8.4-10.2); Carbon Dioxide 28 mmol/L (22-32); Chloride 108 mmol/L (98-107); Creatine Kinase 39 U/L (30-135); Estimated Glomerular Filt Rate > 60.0 mL/min (>60); Glucose 99 mg/dL (70-100); HEMOLYSIS < 15 (0-50); Lipase 124 U/L (23-300); Magnesium 2.2 mg/dL (1.6-2.3); Sodium 139 mmol/L (137-145); Total Protein 7.4 g/dL (6.3-8.2)
[2021-11-29 17:19] LABS: Troponin I < 0.012 ng/mL (0.01-0.034)
[2021-11-29 17:21] LABS: COVID19 -Nasal RAPID Negative (Negative)
[2021-11-29 19:33] VITALS: BP 119/56; PULSE 71; RESP 16; O2SAT 100
--- NOTE | 2021-11-29 19:36 | PC.NURSE ---
Patient reports increase stress in her life, has not been getting out of the house due to the weather. patient reports a panic disorder that she occassionally takes medications for but has not been using. Patient states she used to workout to help her mental health but hasn't been able to do so recently due to some chronic pain issues. Patient states she just hasn't felt well today. Pain started in left chest radiated to left arm. Some nausea.
[2021-11-29 20:10] LABS: Troponin I < 0.012 ng/mL (0.01-0.034)
[2021-11-29 20:11] VITALS: PULSE 76; RESP 9; O2SAT 99
[2021-11-29 20:30] VITALS: BP 115/63; PULSE 72; RESP 3; O2SAT 100
[2021-11-29 21:12] VITALS: PULSE 76; RESP 17
[2021-11-29 21:30] VITALS: PULSE 76; RESP 15; O2SAT 100
--- NOTE | 2021-11-29 21:51 | ED_ITS ---
HPI - Chest Pain General Chief Complaint: Chest Pain Stated Complaint: Heavy chest pain and down left arm, lightheaded Time Seen by Provider: 11/29/21 21:50 Source: patient Mode of arrival: Family Vehicle Limitations: no limitations Limitations: no limitations History of Present Illness HPI narrative: This is a 41-year-old female comes with complaint of chest pain that felt like a spider web in her chest and down her left arm. It happened twice. Each time lasted about 3 seconds. Patient states the 1st time she was lifting buttocks into a box. The 2nd time she was sitting on the bed. She states she typically has tingling in her left upper extremity did not changes. No new numbness or weakness. She denies any fevers or chills. No cold cough or congestion. She has had some mild nausea for the past 2 days and some mild diarrhea. She denies any shortness of breath. Her chest has felt a little congested. She states she has a history panic disorder. She does not any history of hypertension, does a edema, diabetes or known cardiac disease. She states she was put on a medication that increased her weight significantly. She has had a cholecystectomy and a tube removed. She has 2 brothers in their 50s who have had MIs. And her mother has CHF. No allergies. She occasionally vapes tobacco, no EtOH, no illicit. She feels with the primary care [facility]. Related Data Home Medications Medication Instructions Recorded Confirmed [id number]-jdftnlbveedwc-hpkdvdts 1 - 2 tab PO Q6H PRN 05/25/19 05/25/19 50 mg-325 mg-40 mg tablet verapamil 120 mg tablet,extended 120 mg PO [id number] 05/25/19 05/25/19 release Previous Rx's Medication Instructions Recorded cyclobenzaprine 10 mg tablet 10 mg PO TID #20 tab 01/25/20 naproxen 500 mg tablet 500 mg PO BID PRN #20 tab 03/09/21 sulfamethoxazole 800 1 tab PO Q12H #14 tab 03/09/21 mg-trimethoprim 160 mg tablet (Bactrim DS) lorazepam 1 mg tablet (Ativan) 0.5 mg PO TID PRN #5 tab 11/29/21 Allergies Allergy/AdvReac Type Severity Reaction Status Date / Time bupropion [From WELLBUTRIN] AdvReac Severe mental Verified 01/30/19 09:16 breakdown while taking it. I prefer not to take it. clindamycin [CLINDAMYCIN] AdvReac Mild gave me c Verified 01/30/19 09:16 diff Review of Systems Review of Systems ROS Unobtainable: All systems reviewed & are unremarkable except as noted in HPI and below Patient History Medical History Anxiety (2012) CTS (carpal tunnel syndrome) (2012) Depression (2012) Hypothyroid Impaired vision Migraines Surgical History Anesthesia H/O unilateral salpingectomy History of carpal tunnel repair (10/2013) Status post cholecystectomy (1995) Family History Brother Age: 45 Heart disease Brother Age: 50 Heart disease Father Age: 76 Mental health problem Mother Age: 74 Diabetes mellitus Hypertension Social History marital status: unmarried,single number of children: 1 household members: family lives independently: Yes pets and animals: No education level: vocational occupational status: employed ([employer]) leisure activities: art and reading other: writing, painting, drawing seatbelt use: always water heater temp set < 120 deg: Yes working smoke detector in home: Yes fire extinguisher in home: Yes carbon monox detector in home: Yes firearms in home: No Smoking Status: Former smoker Tobacco: How many years used: 20 second hand exposure: No alcohol intake: never substance use type: former substance user (meth and pills, and any kind of pill) and other (CBC for pain) during the past year weight has: other well-balanced diet: daily or most days daily servings fruits/ve-4 caffeine: Yes (rare/occasional soda/pop) eating out: 1-3 times/week Type(s) of exercise: walking and other frequency: 1-2 times per week duration: 30-45 minutes/day additional social history: vision deficit-states she has floaters Smoking Status: Former smoker tobacco type: vaping alcohol intake frequency: 0-2 drinks per day Substance Use Type: does not use Exam Narrative Exam Narrative: GENERAL: Alert and oriented x three, mild distress. HEENT: Head normocephalic, atraumatic, EOMI, pupils reactive, face symmetric, moist mucous membranes NECK: Supple, full range of motion CARDIOVASCULAR: Regular rate and rhythm without murmurs, rubs or gallops. RESPIRATORY: Breath sounds equal bilaterally, no wheezes rales or rhonchi. ABDOMEN: Soft, nontender. Normoactive bowel sounds all 4 quadrants. No g uarding or rebound, rigidity, no mass : No CVA tenderness EXTREMITIES: Normal range of motion, no clubbing or edema. Neurovascularly intact NEUROLOGICAL: Cranial nerves II through XII grossly intact. Moving all extremities SKIN: Warm, dry, no petechiae, no rashes or lesions. Initial Vital Signs Initial Vital Signs: Vital Signs Temperature 98.7 F 11/29/21 16:31 Pulse Rate 83 11/29/21 16:31 Respiratory Rate 18 11/29/21 16:31 Blood Pressure 136/81 11/29/21 16:31 Pulse Oximetry 99 11/29/21 16:31 Scores HEART Score Heart Score history: Slightly Suspicious Heart Score EKG: Normal Heart Score Age: < 45 years old Heart Score risk factors: 1-2 risk factors Heart Score troponin: < or = to normal limit Heart Score Total: 1 Course Orders Ordered: ED Orders 11/29/21 19:20 EKG-12 Lead Stat 11/29/21 19:35 Troponin I Stat Vital Signs Vital signs: Vital Signs - 8 hr 11/29/21 19:33 11/29/21 20:11 11/29/21 20:30 Pulse Rate 71 76 72 Respiratory Rate 16 9 L 3 L Blood Pressure 119/56 L 115/63 Pulse Oximetry 100 99 100 11/29/21 21:12 11/29/21 21:30 Pulse Rate 76 76 Respiratory Rate 17 15 Blood Pressure Pulse Oximetry 100 MDM - Chest Pain Lab Data Result diagrams: 11/29/21 16:45 11/29/21 16:45 Labs: Lab Results 11/29/21 11/29/21 11/29/21 Range/Units 16:45 16:45 16:52 WBC 6.7 (4.5-11.0) X10^3/uL RBC 5.12 (4.0-5.2) X10^6/uL Hgb 14.3 (12.0-16.0) g/dL Hct 43.4 (36-46) % MCV 84.7 (80-100) fL MCH 27.9 (26-34) PG MCHC 33.0 (30-36) % RDW 13.7 (11.6-14.8) % Plt Count 316 (150-400) X10^3/uL Neut % (Auto) 64.7 (50-75) % Lymph % (Auto) 22.1 L (25-40) % [place] % (Auto) 9.5 (3-14) % Eos % (Auto) 2.9 (2-4) % Baso % (Auto) 0.8 (0-2) % Neut # (Auto) 4400 (6755-3351) /uL Lymph # (Auto) 1500 (8793-3310) /uL [place] # (Auto) 600 (0-900) /uL Eos # (Auto) 200 (0-450) /uL Baso # (Auto) 100 (0-100) /uL Sodium 139 (137-145) mmol/L Potassium 4.0 (3.4-5.1) mmol/L Chloride 108 H (98-107) mmol/L Carbon Dioxide 28 (22-32) mmol/L BUN 13 (7-17) mg/dL Creatinine 0.74 (0.52-1.04) mg/dL Estimated GFR > 60.0 (>60) mL/min BUN/Creatinine Ratio 17.6 (6-22) Glucose 99 (70-100) mg/dL Calcium 9.4 (8.4-10.2) mg/dL Magnesium 2.2 (1.6-2.3) mg/dL Total Bilirubin 0.3 (0.2-1.3) mg/dL AST 28 (14-36) IU/L ALT 28 (<35) IU/L Alkaline Phosphatase 58 (38-126) U/L Total Creatine Kinase 39 (30-135) U/L CK-MB (CK-2) TNP CK-MB (CK-2) Rel Index TNP Troponin I < 0.012 (0.01-0.034) ng/mL Total Protein 7.4 (6.3-8.2) g/dL Albumin 4.4 (3.5-5.0) g/dL Globulin 3.0 (1.7-4.1) g/dL Albumin/Globulin Ratio 1.5 (1.0-2.8) Lipase 124 (23-300) U/L SARS-CoV-2 (PCR) Negative (Negative) 11/29/21 Range/Units 19:35 WBC (4.5-11.0) X10^3/uL RBC (4.0-5.2) X10^6/uL Hgb (12.0-16.0) g/dL Hct (36-46) % MCV (80-100) fL MCH (26-34) PG MCHC (30-36) % RDW (11.6-14.8) % Plt Count (150-400) X10^3/uL Neut % (Auto) (50-75) % Lymph % (Auto) (25-40) % [place] % (Auto) (3-14) % Eos % (Auto) (2-4) % Baso % (Auto) (0-2) % Neut # (Auto) (0908-5787) /uL Lymph # (Auto) (3499-0350) /uL [place] # (Auto) (0-900) /uL Eos # (Auto) (0-450) /uL Baso # (Auto) (0-100) /uL Sodium (137-145) mmol/L Potassium (3.4-5.1) mmol/L Chloride (98-107) mmol/L Carbon Dioxide (22-32) mmol/L BUN (7-17) mg/dL Creatinine (0.52-1.04) mg/dL Estimated GFR (>60) mL/min BUN/Creatinine Ratio (6-22) Glucose (70-100) mg/dL Calcium (8.4-10.2) mg/dL Magnesium (1.6-2.3) mg/dL Total Bilirubin (0.2-1.3) mg/dL AST (14-36) IU/L ALT (<35) IU/L Alkaline Phosphatase (38-126) U/L Total Creatine Kinase (30-135) U/L CK-MB (CK-2) CK-MB (CK-2) Rel Index Troponin I < 0.012 (0.01-0.034) ng/mL Total Protein (6.3-8.2) g/dL Albumin (3.5-5.0) g/dL Globulin (1.7-4.1) g/dL Albumin/Globulin Ratio (1.0-2.8) Lipase (23-300) U/L SARS-CoV-2 (PCR) (Negative) Imaging Data Chest x-ray: Radiologist's Impression: Anabel Sorto??41??F??1980 ? Allergy/Adv: bupropion, clindamycin Close Chest X-Ray (Signed) Stefano Olivares - 11/29/21 Vascular Ultrasound (Signed) Stefano Olivares - 03/09/21 Chest X-Ray (Signed) Leonila Jaime - 05/25/19 Radiology - Historical 03/17/18 Launch?[address] [address] XRay Report Signed Patient: Anabel Sorto MR#: [id number] : 1980 Acct:[id number] Age/Sex: 41 / F Date of Service: 11/29/21 Loc: ED Accession Number: [id number] ?? Procedure: XR chest 1V Ordering Provider: Christine Bundy MD PROCEDURE:? XR CHEST 1V ? INDICATIONS:? chest pain ? TECHNIQUE:? One view of the chest was acquired.? ? COMPARISON:? [facility], XR CHEST 1V, 05/25/2019, 17:53. ? FINDINGS:? ? Surgical changes and devices:? Cholecystectomy clips are seen.? ? Lungs and pleura:? Minimal generalized interstitial prominence can be seen on both sides. ?No pleural effusions or pneumothorax.? Low lung volumes are noted. This causes a crowded appearance to the lung markings and limits evaluation.? ? Mediastinum:? Mediastinal contours appear normal.? Heart size is normal.? ? Bones and chest wall:? No suspicious bony lesions.? Mild dextroconvex scoliotic curvature is seen.? Age-appropriate bony degenerative changes are seen. ? Overlying soft tissues appear unremarkable.? ? ? IMPRESSION:? Minimal generalized interstitial prominence can be seen on both sides.? Differential diagnosis includes artifact from the incomplete inspiratory result, pulmonary edema, and potentially atypical infiltrate (including COVID pneumonia). ? If clinically appropriate, a short-term followup chest series (with PA and lateral views) performed in deep inspiration is suggested for further evaluation.? ? Postoperative and degenerative changes are seen.? ? ? Dictated by: Stefano Olivares M.D. on 11/29/2021 at 16:22 ? ? Approved by: Stefano Olivares M.D. on 11/29/2021 at 16:23?? ECG Data Attestation: I personally reviewed and interpreted this ECG as follows: Interpretation: Sinus rhythm sinus arrhythmia. Rate of 65, P are 164 QRS 82 QTC of 407. No acute ST changes noted. EKG shows a rate of 73, P are 164, QRS 80 QTC of 409. No acute ST changes appreciated appears similar from 05/25/2019 and 2018. MDM Narrative Medical decision making narrative: This is a 41-year-old female comes emergency department with of chest pain was about 3 seconds in length happy to events patient was sitting on bed and eating some books. Heart score is 1, patient has family history and obesity but no other significant risk factors. Chest x-ray is noted to have some minimal generalized interstitial prominence. She has not had any clear infectious symp toms, her COVID swab today is negative. She does not appear to be fluid overloaded. Discussed with patient plan to have her follow up with primary care. We discussed they may follow-up with stress testing but my suspicion for cardiac cause of her symptoms is low. We did discuss that being retested for COVID would be appropriate if she continues have symptoms or she develops fevers or other infectious changes should return for recheck. Discharge Plan Departure Patient Disposition: Home Clinical Impression: Atypical chest pain Instructions: DI for Atypical Chest Pain Activity Restrictions/Additional Instructions: Follow-up with your physician for recheck. You may take 1/2 to 1 tablet every 8 hours as needed. Prescription sent to [facility]. If you develop fevers, have new chest congestion, cough, shortness of breath I would be retested for COVID. Please return for fevers, new or worsening chest pain, shortness of breath, passing out, persistent vomiting or other new or concerning symptoms. Prescriptions: New lorazepam [Ativan] 1 mg tablet 0.5 mg PO TID PRN (Reason: anxiety) Qty: 5 0RF No Action dnkoxqfhex-wiudixkockouh-ghiw 50-325-40 mg tablet 1 - 2 tab PO Q6H PRN (Reason: Headache) 0RF Label Comments: take 1 to 2 tablets by mouth every 6 hours MAX OF 2 DAYS PER WEEKif needed for headache Rx Instructions: MAX OF 2 DAYS PER WEEK. verapamil 120 mg tablet extended release 120 mg PO [id number] 0RF Label Comments: PATIENT STATES ONLY TOOK FOR 5 DAYS DUE TO SIDE EFFECTS. Rx Instructions: 1 tab po every morning for 2 weeks then INCREASE to twice a day. cyclobenzaprine 10 mg tablet 10 mg PO TID Qty: 20 0RF sulfamethoxazole-trimethoprim [Bactrim DS] 800-160 mg tablet 1 tab PO Q12H Qty: 14 0RF naproxen 500 mg tablet 500 mg PO BID PRN (Reason: pain) Qty: 20 0RF Referrals: Steffanie Huerta PA-C [Primary Care Provider] -
== END 2021-11-29 22:15 | disposition home or self-care (01) ==
PROVIDERS: Emergency Medicine; Emergency Provider Emergency Medicine; Family Provider Physician Assistant; PCP Physician Assistant
DX: R07.89 Other chest pain (principal); Z20.822 Contact with and (suspected) exposure to COVID-19
CPT/HCPCS: 36415; 71045; 80053; 82550; 83690; 83735; 84484; 85025; 87635; 93005; 99283; 99284; C9803

== ENCOUNTER 2024-03-21 09:19 | Emergency (ER) | payer OTHER, MEDICAID, SELFPAY ==
[2024-03-21 09:38] VITALS: BP 134/76; PULSE 94; RESP 19; TEMP 35.8; O2SAT 98; BMI 46.7
[2024-03-21 11:20] VITALS: BP 145/87; PULSE 70; RESP 18; O2SAT 100
--- NOTE | 2024-03-21 11:37 | ED.BACK ---
HPI - Back Pain/Injury <Santiago Hamilton PA-C - Last Filed: 03/21/24 13:38> General Chief Complaint: Back Pain/Injury Stated Complaint: back pain L side of body, bumps around hip area Time Seen by Provider: 03/21/24 11:19 Source: patient History of Present Illness HPI Narrative: 44-year-old female presents to the ED with 2 days of lower back pain. Patient states that she was getting out of bed yesterday morning when she felt a pop in her lower back on the left side. Patient states that since then she has been having left-sided lower back pain that radiates down to the right leg. Patient has a pre-existing condition of sciatica on the left side. Patient also has numbness and tingling at baseline which has not changed. No urinary difficulties including urinary hesitancy, urinary incontinence. No bowel incontinence. No saddle paresthesias. Patient is able to ambulate normally. Related Data Home Medications Medication Instructions Recorded Confirmed ciokzpfsxk-hfhybdskcmmst-rbgaarhy 1 - 2 tab PO Q6H PRN Headache 05/25/19 05/25/19 50 mg-325 mg-40 mg tablet verapamil 120 mg tablet,extended 120 mg PO [id number] 05/25/19 05/25/19 release Previous Rx's Medication Instructions Recorded cyclobenzaprine 10 mg tablet 10 mg PO TID Back spasm #20 tabs 01/25/20 naproxen 500 mg tablet 500 mg PO BID PRN pain #20 tabs 03/09/21 sulfamethoxazole 800 1 tab PO Q12H #14 tabs 03/09/21 mg-trimethoprim 160 mg tablet (Bactrim DS) lorazepam 1 mg tablet (Ativan) 0.5 mg (1/2 x 1 mg) PO TID PRN 11/29/21 anxiety #5 tabs cyclobenzaprine 10 mg tablet 10 mg PO TID PRN muscle spasm #10 03/21/24 tabs Allergies Allergy/AdvReac Type Severity Reaction Status Date / Time bupropion [From WELLBUTRIN] AdvReac Severe mental Verified 03/21/24 09:42 breakdown while taking it. I prefer not to take it. clindamycin [CLINDAMYCIN] AdvReac Mild gave me c Verified 03/21/24 09:42 diff Review of Systems <Santiago Hamilton PA-C - Last Filed: 03/21/24 13:38> Constitutional Constitutional: Denies chills, Denies fatigue, Denies fever(s), Denies frequent falls, Denies lethargy and Denies weakness Eyes Eyes: Denies change in vision, Denies eye discharge, Denies irritation and Denies loss of vision ENT Ears, Nose, Mouth, and Throat: Denies change in voice, Denies dizziness, Denies neck pain, Denies sore throat and Denies throat swelling Cardiovascular Cardiovascular: Denies chest pain, Denies irregular heart rhythm, Denies lightheadedness, Denies palpitations, Denies dyspnea, Denies dyspnea on exertion and Denies orthopnea Respiratory Respiratory: Denies cough, Denies dyspnea, Denies dyspnea on exertion and Denies wheezing Gastrointestinal Gastrointestinal: Denies abdominal pain, Denies change in bowel habits, Denies diarrhea, Denies nausea and Denies vomiting Musculoskeletal Musculoskeletal: Denies neck pain and Denies numbness Comments: Left-sided lower back pain, radiating to the left leg Integumentary/Breasts Skin/Breast: Denies pruritus, Denies erythema, Denies rash and Denies wounds Neurologic Neurologic: Denies behavioral changes, Denies confusion, Denies dizziness, Denies frequent falls, Denies loss of vision, Denies numbness and Denies weakness Psychiatric Psychiatric: Denies anxiety, Denies behavioral changes, Denies confusion, Denies depression, Denies homicidal ideation and Denies suicidal ideation Endocrine Endocrine: Denies fatigue, Denies flushing and Denies palpitations Hematologic/Lymphatic Hematologic/Lymphatic: Denies easy bruising Allergic/Immunologic Allergic/Immunologic: Denies urticaria, Denies throat swelling and Denies wheezing Patient History <Santiago Hamilton PA-C - Last Filed: 03/21/24 13:38> Medical History (Updated 03/21/24 @ 13:16 by Santiago Hamilton PA-C) CTS (carpal tunnel syndrome) (2012) Impaired vision Depression (2012) Hypothyroid Migraines Anxiety (2012) Surgical History H/O unilateral salpingectomy Anesthesia History of carpal tunnel repair (10/2013) Status post cholecystectomy (1995) Family History Brother Age: 47 Heart disease Brother Age: 52 Heart disease Father Age: 78 Mental health problem Mother Age: 76 Diabetes mellitus Hypertension Social History marital status: unmarried,single number of children: 1 household members: family lives independently: Yes pets and animals: No education level: vocational occupational status: employed ([employer]) leisure activities: art and reading other: writing, painting, drawing seatbelt use: always water heater temp set < 120 deg: Yes working smoke detector in home: Yes fire extinguisher in home: Yes carbon monox detector in home: Yes firearms in home: No Smoking Status: Former smoker Tobacco: How many years used: 20 second hand exposure: No alcohol intake: never substance use type: former substance user (meth and pills, and any kind of pill) and other (CBC for pain) during the past year weight has: other well-balanced diet: daily or most days daily servings fruits/ve-4 caffeine: Yes (rare/occasional soda/pop) eating out: 1-3 times/week Type(s) of exercise: walking and other frequency: 1-2 times per week duration: 30-45 minutes/day additional social history: vision deficit-states she has floaters Smoking Status: Former smoker tobacco type: cigarettes and vaping alcohol intake frequency: 0-2 drinks per day Substance Use Type: does not use Exam <Santiago Hamilton PA-C - Last Filed: 03/21/24 13:38> Narrative Exam Narrative: Const General:?cooperative, healthy appearing and comfortable [facility] Head:?normal to inspection Ears:?hearing grossly normal bilaterally Nose:?external nose normal Face and sinus:?normal facial exam and sinuses nontender Mouth:?oral mucosae normal Throat:?posterior oropharynx normal Eyes General:?appearance normal, both eyes and all related structures Neck Neck:?normal visual inspection and no lymphadenopathy noted Resp Effort & Inspection:?normal respiratory effort Auscultation:?clear to auscultation bilaterally Cardio Rate:?regular rate Rhythm:?regular rhythm Musculoskeletal No midline tenderness to palpation. No paraspinal tenderness to palpation. Strength and sensation is intact. There is full range of motion. Patient is neurovascularly intact. Gait is normal. Neuro General:?patient alert, patient awake and patient oriented x3 Initial Vital Signs Initial Vital Signs: Vital Signs Temperature 96.5 F L 03/21/24 09:38 Pulse Rate 94 H 03/21/24 09:38 Respiratory Rate 19 03/21/24 09:38 Blood Pressure 134/76 03/21/24 09:38 Pulse Oximetry 98 03/21/24 09:38 Oxygen Delivery Method Room Air 03/21/24 09:38 <Christine Bundy MD - Last Filed: 03/22/24 18:23> Initial Vital Signs Initial Vital Signs: Vital Signs Temperature 96.5 F L 03/21/24 09:38 Pulse Rate 94 H 03/21/24 09:38 Respiratory Rate 19 03/21/24 09:38 Blood Pressure 134/76 03/21/24 09:38 Pulse Oximetry 98 03/21/24 09:38 Oxygen Delivery Method Room Air 03/21/24 09:38 Course <Santiago Hamilton PA-C - Last Filed: 03/21/24 13:38> Orders Ordered: Discontinued Medications Ketorolac Tromethamine (Ketorolac 30 Mg/Ml Vial) 30 mg IM NOW ONE Stop: 03/21/24 11:46 Last Admin: 03/21/24 11:53 Dose: 30 mg Documented By: SPF Ondansetron HCl (Ondansetron 4 Mg Odt) 4 mg SL NOW PRN PRN Reason: Nausea And Vomiting Ondansetron HCl (Ondansetron 4 Mg/2 Ml Inj) 4 mg IV NOW PRN PRN Reason: Nausea And Vomiting Vital Signs Vital signs: Vital Signs - 8 hr 03/21/24 09:38 03/21/24 11:20 Temperature 96.5 F L Pulse Rate 94 H 70 Respiratory Rate 19 18 Blood Pressure 134/76 145/87 H Pulse Oximetry 98 100 Oxygen Delivery Method Room Air Room Air <Christine Bundy MD - Last Filed: 03/22/24 18:23> Orders Ordered: Discontinued Medications Ketorolac Tromethamine (Ketorolac 30 Mg/Ml Vial) 30 mg IM NOW ONE Stop: 03/21/24 11:46 Last Admin: 03/21/24 11:53 Dose: 30 mg Documented By: SPF Ondansetron HCl (Ondansetron 4 Mg Odt) 4 mg SL NOW PRN PRN Reason: Nausea And Vomiting Ondansetron HCl (Ondansetron 4 Mg/2 Ml Inj) 4 mg IV NOW PRN PRN Reason: Nausea And Vomiting Vital Signs Vital signs: Vital Signs - 8 hr 03/21/24 09:38 03/21/24 11:20 Temperature 96.5 F L Pulse Rate 94 H 70 Respiratory Rate 19 18 Blood Pressure 134/76 145/87 H Pulse Oximetry 98 100 Oxygen Delivery Method Room Air Room Air MDM - Back Pain/Injury <Santiago Hamilton PA-C - Last Filed: 03/21/24 13:38> Lab Data Labs: Point of Care Testing Test Results Negative Urine Dip Bedside Urine Glucose Negative Bedside Urine Bilirubin - Negative Bedside Urine Ketone - Negative Urine Specific [place] 1.020 Bedside Urine Occult Blood - Negative Bedside Urine pH 6.0 Bedside Urine Protein - Negative Bedside Urine Urobilinogen - Negative Bedside Urine Nitrite - Negative Bedside Urine Leukocytes - Negative Esterase MDM Narrative Medical decision making narrative: 44-year-old female presents to the ED with 2 days of lower back pain. No midline tenderness to palpation. However, will obtain x-ray to rule out fracture or dislocation since patient is concerned. Patient's symptoms are most consistent with a musculoskeletal sprain/strain versus acute on chronic sciatica versus other. Will give IM Toradol. Will reassess. X-rays negative for fracture/dislocation. Discussed findings with patient. Patient prescribed muscle relaxant. Recommend Tylenol, ibuprofen, lidocaine patch for pain relief. Recommend follow-up with PCP for further evaluation and PT referral. ED return precautions discussed with patient. Patient verbalized understanding. Medical records reviewed: Yes <Christine Bundy MD - Last Filed: 03/22/24 18:23> Lab Data Labs: Point of Care Testing Test Results Negative Urine Dip Bedside Urine Glucose Negative Bedside Urine Bilirubin - Negative Bedside Urine Ketone - Negative Urine Specific [place] 1.020 Bedside Urine Occult Blood - Negative Bedside Urine pH 6.0 Bedside Urine Protein - Negative Bedside Urine Urobilinogen - Negative Bedside Urine Nitrite - Negative Bedside Urine Leukocytes - Negative Esterase Discharge Plan Departure Patient Disposition: Home Clinical Impression: Lower back pain Qualifiers: Chronicity: unspecified Back pain laterality: left Sciatica presence: with sciatica Sciatica laterality: sciatica of left side Qualified Code(s): M54.42 - Lumbago with sciatica, left side Instructions: DI for Back Pain With Sciatica Activity Restrictions/Additional Instructions: You were evaluated in the ED today for lower back pain. Your x-ray did not show any fractures or dislocations. It appears that you have an exacerbation of your sciatica. You have been prescribed a muscle relaxant for pain relief. You may continue to take ibuprofen 800 mg every 8 hours with food. You may also add on 1000 mg of Tylenol every 8 hours for pain. Please follow-up with your PCP as soon as possible for further evaluation and physical therapy referrals. Return to the ED if you have worsening symptoms, urinary difficulties. Prescriptions: New cyclobenzaprine 10 mg tablet 10 mg PO TID PRN (Reason: muscle spasm) Qty: 10 0RF No Action lorazepam [Ativan] 1 mg tablet 0.5 mg PO TID PRN (Reason: anxiety) Qty: 5 0RF themthfsmr-imrqaggkqpvjr-gksd 50-325-40 mg tablet 1 - 2 tab PO Q6H PRN (Reason: Headache) Patient Comments: take 1 to 2 tablets by mouth every 6 hours MAX OF 2 DAYS PER WEEKif needed for headache Rx Instructions: MAX OF 2 DAYS PER WEEK. verapamil 120 mg tablet extended release 120 mg PO [id number] Patient Comments: PATIENT STATES ONLY TOOK FOR 5 DAYS DUE TO SIDE EFFECTS. Rx Instructions: 1 tab po every morning for 2 weeks then INCREASE to twice a day. cyclobenzaprine 10 mg tablet 10 mg PO TID Qty: 20 0RF sulfamethoxazole-trimethoprim [Bactrim DS] 800-160 mg tablet 1 tab PO Q12H Qty: 14 0RF naproxen 500 mg tablet 500 mg PO BID PRN (Reason: pain) Qty: 20 0RF Stand Alone Forms: Patient Portal/API ED Sign-out <Christine Bundy MD - Last Filed: 03/22/24 18:23> Cosign ED Attending Cosignature Attestation: I was immediately available in the department for consultation throughout this patient's visit. Christine Bundy MD
--- NOTE | 2024-03-21 11:45 | DI.RAD.S_ITS ---
PROCEDURE: XR LUMBAR SPINE 2-3V INDICATIONS: lower back pain TECHNIQUE: 3 views of the lumbar spine were acquired. COMPARISON: None. FINDINGS: Bones: 5 exc-awv-wjruolm vertebrae are present. There is mild, approximately 5 millimeters of L4-L5 anterolisthesis. Mild multilevel degenerative disc disease. Mild multilevel facet arthropathy. No vertebral body compression fractures. No suspicious bony lesions. Soft tissues: Overlying bowel gas pattern is normal. No suspicious soft tissue calcifications. Multiple surgical clips and intrauterine device. IMPRESSION: No acute bony abnormality. Dictated by: Veronica Talbot MD, PhD on 03/21/2024 at 12:57 Approved by: Veronica Talbot MD, PhD on 03/21/2024 at 12:59
--- NOTE | 2024-03-21 11:47 | PC.NURSE ---
Pt reports chronic sciatica pain which she has been seen for in the past, prescribed muscle relaxers which do not help at all. Pt tearful, states no one will look into what is causing her back pain. New orders placed including xray.
[2024-03-21] MEDS: KETOROLAC 30 MG/ML VIAL IM (11:53)
[2024-03-21 13:35] VITALS: BP 120/64; PULSE 69; RESP 18; TEMP 36.4; O2SAT 100
== END 2024-03-21 13:36 | disposition home or self-care (01) ==
PROVIDERS: Emergency Provider Student in an Organized Health Care Education/Training Program
DX: M54.42 Lumbago with sciatica, left side (principal)
CPT/HCPCS: 72100; 81003; 81025; 96372; 99283; J1885

== ENCOUNTER 2025-02-17 07:39 | Emergency (ER) | payer OTHER, MEDICAID, SELFPAY ==
[2025-02-17 07:49] VITALS: BP 132/70; PULSE 67; RESP 17; TEMP 36.3; O2SAT 99; BMI 46.7
--- NOTE | 2025-02-17 08:01 | EKG_ITS ---
[facility] [address] [address] Test Date: 2025-02-17 Pat Name: Anabel Sorto Department: [facility] Room: Gender: Female Insurance Claim Auditor: RICARDO : 1980 Requested By: Order Number: [id number] Reading MD: Andi Gutiérrez MD Measurements Intervals Bowler Rate: 64 P: 47 KS: 172 QRS: 8 QRSD: 80 T: 7 QT: 404 QTc: 416 Interpretive Statements Normal sinus rhythm Electronically Signed On 02-18-2025 15:00:58 PDT by Andi Gutiérrez MD
--- NOTE | 2025-02-17 08:02 | ED.EXTPRO ---
HPI - Extremity Problem General Chief complaint: Extremity Problem,Nontraumatic Stated complaint: LT shoulder px; had 2 heart palpitations this am Time Seen by Provider: 02/17/25 07:47 Source: patient Mode of arrival: Family Vehicle History of Present Illness HPI Narrative: 44-year-old female with history of fibromyalgia, anxiety, recurrent headaches, chronic pain, complains of 3 days' duration of left shoulder pain, posterior scapular shoulder blade area, worse with movement. No injury or trauma new activities recalled. She also has intermittent palpitations. No syncope or presyncope. No anterior chest discomfort or shortness of breath. No leg pain or swelling symptoms. No fevers or chills. No recent cough. No current headache. Related Data Home Medications Medication Instructions Recorded Confirmed mwbkffwvql-jljgkywjabdgh-oozpsqgu 1 - 2 tab PO Q6H PRN Headache 05/25/19 05/25/19 50 mg-325 mg-40 mg tablet verapamil 120 mg tablet,extended 120 mg PO [id number] 05/25/19 05/25/19 release Previous Rx's Medication Instructions Recorded cyclobenzaprine 10 mg tablet 10 mg PO TID Back spasm #20 tabs 01/25/20 naproxen 500 mg tablet 500 mg PO BID PRN pain #20 tabs 03/09/21 sulfamethoxazole 800 1 tab PO Q12H #14 tabs 03/09/21 mg-trimethoprim 160 mg tablet (Bactrim DS) lorazepam 1 mg tablet (Ativan) 0.5 mg (1/2 x 1 mg) PO TID PRN 11/29/21 anxiety #5 tabs cyclobenzaprine 10 mg tablet 10 mg PO TID PRN muscle spasm #10 03/21/24 tabs methocarbamol 500 mg tablet 500 mg PO TID 7 days #21 tabs 02/17/25 Allergies Allergy/AdvReac Type Severity Reaction Status Date / Time basil Allergy Swelling Verified 02/17/25 07:54 of Lip/Tongue/Throat bupropion [From WELLBUTRIN] AdvReac Severe mental Verified 02/17/25 07:53 breakdown while taking it. I prefer not to take it. clindamycin [CLINDAMYCIN] AdvReac Mild gave me c Verified 02/17/25 07:53 diff codeine AdvReac ITCHING Verified 02/17/25 07:54 Patient History Medical History (Updated 02/17/25 @ 08:13 by Matt Tejada MD) CTS (carpal tunnel syndrome) (2013) Impaired vision Depression (2013) Hypothyroid Migraines Anxiety (2013) Surgical History H/O unilateral salpingectomy Anesthesia History of carpal tunnel repair (10/2013) Status post cholecystectomy (1995) Family History Brother Age: 48 Heart disease Brother Age: 53 Heart disease Father Age: 79 Mental health problem Mother Age: 77 Diabetes mellitus Hypertension Social History marital status: unmarried,single number of children: 1 household members: family lives independently: Yes pets and animals: No education level: vocational occupational status: employed ([employer]) leisure activities: art and reading other: writing, painting, drawing seatbelt use: always water heater temp set < 120 deg: Yes working smoke detector in home: Yes fire extinguisher in home: Yes carbon monox detector in home: Yes firearms in home: No Smoking Status: Former smoker Tobacco: How many years used: 20 second hand exposure: No alcohol intake: never substance use type: former substance user (meth and pills, and any kind of pill) and other (CBC for pain) during the past year weight has: other well-balanced diet: daily or most days daily servings fruits/ve-4 caffeine: Yes (rare/occasional soda/pop) eating out: 1-3 times/week Type(s) of exercise: walking and other frequency: 1-2 times per week duration: 30-45 minutes/day additional social history: vision deficit-states she has floaters Smoking Status: Former smoker tobacco type: cigarettes and vaping alcohol intake frequency: 0-2 drinks per day Exam Narrative Exam Narrative: GENERAL: Well-developed patient, in mild distress. HEAD: Atraumatic. Normocephalic. EYES: Pupils equal round and reactive. Extraocular motions intact. No scleral icterus. No injection or drainage. ENT: Nose without bleeding, purulent drainage. Throat without erythema, tonsillar hypertrophy or exudate. Airway patent. NECK: Trachea midline. Non tender CARDIOVASCULAR: Regular rate and rhythm without murmurs, gallops, or rubs. RESPIRATORY: Clear to auscultation. Breath sounds equal bilaterally. No wheezes, rales, or rhonchi. GASTROINTESTINAL: Abdomen soft, non-tender, nondistended. EXTREMITIES: No edema or joint tenderness. Has tenderness reproducible left superior rhomboid muscle. BACK: Nontender without deformity or crepitance. No flank tenderness. NEURO: AOx3. Motor functions grossly nonfocal. SKIN: No rash or erythema of visible areas. Extensive truncal and extremity skin tattoos, visualized tattoos not obviously red/infected. Initial Vital Signs Initial Vital Signs: Vital Signs Temperature 97.3 F L 02/17/25 07:49 Pulse Rate 67 02/17/25 07:49 Respiratory Rate 17 02/17/25 07:49 Blood Pressure 132/70 02/17/25 07:49 Pulse Oximetry 99 02/17/25 07:49 Oxygen Delivery Method Room Air 02/17/25 07:49 Course Orders Ordered: ED Orders 02/17/25 07:54 EKG-12 Lead Stat 02/17/25 08:15 XR chest 2V Stat CBC Auto Diff [Complete Blood Count AUTO DIFF] Stat CMP [Comprehensive Metabolic Panel] Stat Prothrombin Time INR Stat EKG-12 Lead Stat Vital Signs Vital signs: Vital Signs - 8 hr 02/17/25 07:49 Temperature 97.3 F L Pulse Rate 67 Respiratory Rate 17 Blood Pressure 132/70 Pulse Oximetry 99 Oxygen Delivery Method Room Air MDM - Extremity (Nontraumatic) Lab Data 02/17/25 08:10 02/17/25 08:10 Labs: Lab Results 02/17/25 Range/Units 08:10 WBC 6.1 (4.5-11.0) X10^3/uL RBC 4.36 (4.0-5.2) X10^6/uL Hgb 11.7 L (12.0-16.0) g/dL Hct 35.0 L (36-46) % MCV 80.2 (80-100) fL MCH 26.8 (26-34) PG MCHC 33.5 (30-36) % RDW 14.8 (11.6-14.8) % Plt Count 285 (150-400) X10^3/uL Neut % (Auto) 50.1 (50-75) % Lymph % (Auto) 33.6 (25-40) % [place] % (Auto) 10.5 (3-14) % Eos % (Auto) 4.6 H (2-4) % Baso % (Auto) 1.2 (0-2) % Neut # (Auto) 3100 (3767-3749) /uL Lymph # (Auto) 2100 (9154-8242) /uL [place] # (Auto) 600 (0-900) /uL Eos # (Auto) 300 (0-450) /uL Baso # (Auto) 100 (0-100) /uL PT 11.2 (9.4-12.5) SECONDS INR 1.0 (0.9-1.3) Sodium 136 L (137-145) mmol/L Potassium 3.8 (3.4-5.1) mmol/L Chloride 106 (98-107) mmol/L Carbon Dioxide 24 (22-32) mmol/L BUN 20 H (7-17) mg/dL Creatinine 0.72 (0.52-1.04) mg/dL Estimated GFR > 60 (>60) mL/min BUN/Creatinine Ratio 27.8 H (6-22) Glucose 97 (70-100) mg/dL Calcium 8.9 (8.4-10.2) mg/dL Total Bilirubin 0.4 (0.2-1.3) mg/dL AST 40 H (14-36) IU/L ALT 23 (<35) IU/L Alkaline Phosphatase 66 (38-126) U/L Troponin I < 0.012 (0.01-0.034) ng/mL Total Protein 6.6 (6.3-8.2) g/dL Albumin 4.0 (3.5-5.0) g/dL Globulin 2.6 (1.7-4.1) g/dL Albumin/Globulin Ratio 1.5 (1.0-2.8) ECG Data Attestation EKG: I personally reviewed and interpreted this ECG as follows: Interpretation: Normal sinus rhythm with rate of 64, no obvious ST segment elevation or depression changes. T-wave inversion lead 3, flat in lead F, upright in lead 2. CO 172, QRS 80, QTC 416. MDM Narrative Medical decision making narrative: 44-year-old female with fibromyalgia, anxiety, chronic pain, recurrent headaches, complains of recent palpitations and 3 days duration left superior area scapular discomfort. Reproducible discomfort superior left rhomboid musculature. Extensive tattoos but none obviously infected, including posterior trunk over area of symptoms. Exam most consistent with superior rhomboid muscle strain. Patient concerned about palpitations, anxiety history noted. Patient would prefers workup. EKG labs, chest x-ray ordered. Patient agreeable to trial of muscle relaxant Robaxin/methocarbamol, drove herself today, we will send prescription to her requested pharmacy. EKG without obvious ischemia, troponin negative. CXR negative. Trial of methocarbamol muscle relaxant. Rx sent. DC home. Return precautions discussed. Discharge Plan Departure Patient Disposition: Home Clinical Impression: Strain of left rhomboid muscle, Heart palpitations Activity Restrictions/Additional Instructions: Left shoulder blade area discomfort without known trauma, tenderness around the superior rhomboid musculature. History of palpitations, history of anxiety, history of fibromyalgia noted. Screening studies included chest x-ray, EKG, labs, were unremarkable. Trial of muscle relaxant methocarbamol/Robaxin, prescription sent to your pharmacy. Continue your regular prescription medications. Regarding palpitations, consider discussing with your regular doctor about ambulatory outpatient cardiac monitoring, to screen for any heart rhythm/rate problems not found today while in the emergency department. Recheck symptoms with your regular doctor early next week if persisting. Return earlier to this/nearest emergency department for any change worsening symptoms or any concerns prior. Prescriptions: New methocarbamol 500 mg tablet 500 mg PO TID 7 Days Qty: 21 0RF No Action lorazepam [Ativan] 1 mg tablet 0.5 mg PO TID PRN (Reason: anxiety) Qty: 5 0RF cyclobenzaprine 10 mg tablet 10 mg PO TID PRN (Reason: muscle spasm) Qty: 10 0RF hlemstzbdq-nwyyxzycvvtjb-utgo 50-325-40 mg tablet 1 - 2 tab PO Q6H PRN (Reason: Headache) Patient Comments: take 1 to 2 tablets by mouth every 6 hours MAX OF 2 DAYS PER WEEKif needed for headache Rx Instructions: MAX OF 2 DAYS PER WEEK. verapamil 120 mg tablet extended release 120 mg PO [id number] Patient Comments: PATIENT STATES ONLY TOOK FOR 5 DAYS DUE TO SIDE EFFECTS. Rx Instructions: 1 tab po every morning for 2 weeks then INCREASE to twice a day. cyclobenzaprine 10 mg tablet 10 mg PO TID Qty: 20 0RF sulfamethoxazole-trimethoprim [Bactrim DS] 800-160 mg tablet 1 tab PO Q12H Qty: 14 0RF naproxen 500 mg tablet 500 mg PO BID PRN (Reason: pain) Qty: 20 0RF Stand Alone Forms: Patient Portal/API/Survey
--- NOTE | 2025-02-17 08:15 | DI.RAD.S_ITS ---
PROCEDURE: XR CHEST 2V INDICATIONS: shoulder pain, palpitations TECHNIQUE: 2 views of the chest were acquired. COMPARISON: [facility], JAMIR, XR CHEST 1V, 11/29/2021, 16:52. [facility], CR, XR CHEST 1V, 05/25/2019, 17:53. FINDINGS AND IMPRESSION: No dense airspace disease. No pleural effusions. Normal heart size. Unremarkable osseous structures. Dictated by: Russell Ramírez M.D. on 02/17/2025 at 8:50 Approved by: Russell Ramírez M.D. on 02/17/2025 at 8:50
[2025-02-17 08:22] LABS: Add Manual Diff / Slide Review NO; Basophils Absolute Auto 100 /uL (0-100); Basophils Percent Auto 1.2 % (0-2); Eosinophils Absolute Auto 300 /uL (0-450); Eosinophils Percent Auto 4.6 % (2-4); Hemoglobin 11.7 g/dL (12.0-16.0); Lymphocytes Absolute Auto 2100 /uL (1100-4500); Lymphocytes Percent Auto 33.6 % (25-40); Mean Corpuscular HGB Conc 33.5 % (30-36); Mean Corpuscular Hemoglobin 26.8 PG (26-34); Mean Corpuscular Volume 80.2 fL (80-100); Monocytes Absolute Auto 600 /uL (0-900); Monocytes Percent Auto 10.5 % (3-14); Neutrophils Absolute Auto 3100 /uL (1500-7000); Neutrophils Percent Auto 50.1 % (50-75); Platelet Count 285 X10^3/uL (150-400); Red Blood Cell Count 4.36 X10^6/uL (4.0-5.2); Red Cell Distribution Width 14.8 % (11.6-14.8); White Blood Cell Count 6.1 X10^3/uL (4.5-11.0)
[2025-02-17 08:29] LABS: Prothrombin Time 11.2 SECONDS (9.4-12.5)
[2025-02-17 08:32] LABS: Alanine Aminotransferase 23 IU/L (<35); Albumin Globulin Ratio 1.5 (1.0-2.8); Alkaline Phosphatase 66 U/L (38-126); Aspartate Aminotransferase 40 IU/L (14-36); BUN Creatinine Ratio 27.8 (6-22); Bilirubin Total 0.4 mg/dL (0.2-1.3); Blood Urea Nitrogen 20 mg/dL (7-17); Calcium 8.9 mg/dL (8.4-10.2); Carbon Dioxide 24 mmol/L (22-32); Chloride 106 mmol/L (98-107); Estimated Glomerular Filt Rate > 60 mL/min (>60); Globulin 2.6 g/dL (1.7-4.1); Glucose 97 mg/dL (70-100); HEMOLYSIS < 15 (0-50); Potassium 3.8 mmol/L (3.4-5.1); Sodium 136 mmol/L (137-145); Total Protein 6.6 g/dL (6.3-8.2)
[2025-02-17 09:00] VITALS: BP 132/78; PULSE 65; RESP 19; O2SAT 99
[2025-02-17 09:30] VITALS: BP 137/85; PULSE 65; RESP 19; O2SAT 99
[2025-02-17 10:00] VITALS: BP 138/74; PULSE 69; RESP 19; O2SAT 97
[2025-02-17 10:42] LABS: Troponin I < 0.012 ng/mL (0.01-0.034)
[2025-02-17 10:50] VITALS: BP 122/87; PULSE 69; RESP 19; TEMP 36.9; O2SAT 98
== END 2025-02-17 10:51 | disposition home or self-care (01) ==
PROVIDERS: Emergency Provider Emergency Medicine
DX: S46.812A Strain of other muscles, fascia and tendons at shoulder and upper arm level, left arm, initial encounter (principal); R00.2 Palpitations; X58.XXXA Exposure to other specified factors, initial encounter
CPT/HCPCS: 36415; 71046; 80053; 84484; 85025; 85610; 93005; 93010; 99281; 99284